=== PATIENT | male | born 1955 | race Caucasian/White ===

== ENCOUNTER 2018-05-04 03:21 | Inpatient (IN) | payer OTHER, SELFPAY ==
[2018-05-04] VITALS (14 sets, daily range): BP systolic 111–144; BP diastolic 63–96; PULSE 67–105; RESP 16–25; TEMP 36.9–37.3; O2SAT 94–97; BMI 24.7; BMI 24.4; BMI 24.3
[2018-05-04 03:52] LABS: Absolute Lymphocyte Count 0.71 X10^3/ul (0.83-4.51); Absolute Neutrophil Count 4.3 X10^3/uL (2.0-7.7); Basophil# 0.02 X10^3/uL; Basophil% 0.3 % (0-1); Eosinophil# 0.01 X10^3/uL; Eosinophils% 0.2 % (0-5); Hemoglobin 15.7 g/dl (13.0-16.5); Lymphocyte # 0.71 X10^3/ul (4.0); Lymphocyte % 11.6 % (19-41); Mean Corp Hgb Conc 34.1 g/gl (32-36); Mean Corpuscular Hgb 34.7 pg (27.0-32.0); Mean Corpuscular Volume 101.8 fL (80-94); Mean Platelet Vol. 11.3 fl (6.2-12.0); Monocyte# 1.09 X10^3/uL; Monocyte% 17.9 % (0-10); Neutrophil # 4.27 X10^3/uL (2.7-7.7); POSITIVE COUNT NO; POSITIVE DIFFERENTIAL NO; POSITIVE MORPHOLOGY NO; Platelet Count 147 K/mm3 (150-450); RBC Distribution Width CV 13.3 % (11.6-14.6); RBC Distribution Width SD 50.1 fl (35.1-43.9); Red Blood Count 4.52 M/mm3 (4.6-6.2); White Blood Count 6.1 K/mm3 (4.4-11.0)
[2018-05-04] MEDS: Ondansetron 4 MG/2 ML Vial IV ×2 (04:08→06:25)
[2018-05-04] MEDS: 0.9% Normal Saline 1,000 ML 1000 ML IV ×2 (04:08→04:51)
[2018-05-04 04:37] LABS: AST(SGOT) 202 U/L (15-37); Alanine Aminotransfer ALT/SGPT 137 U/L (16-61); Albumin, Serum 4.7 g/dL (3.2-5.0); Alkaline Phosphatase 92 U/L (45-117); Anion Gap 20 (5-15); BUN 34 mg/dL (7-18); BUN/Creat Ratio 12.8 RATIO (10-20); Calcium,Total 9.1 mg/dL (8.5-10.1); Chloride 93 mmol/L (98-107); Creatinine, Serum 2.66 mg/dL (0.70-1.30); EST Glomerular Filtration Rate 26 mL/min (>60); Est Glom Filt Rate - Afr Amer 32 mL/min (>60); Estimated Creatinine Clearance 32.54 ml/min; Globulin 4.7 g/dL (2.2-4.2); Glucose 129 mg/dL (74-106); Lipase 3925 U/L (73-393); Potassium 3.8 mmol/L (3.5-5.1); Protein, Total 9.4 g/dL (6.4-8.2); Sodium Level 136 mmol/L (136-145)
[2018-05-04] MEDS: Phenobarbital Sodium 130 MG/ML Vial 100 MG IV (04:51)
--- NOTE | 2018-05-04 05:10 | ED.DCSUM_ITS ---
- ER Visit Summary Date of Service: 05/04/18 Chief Complaint: Nausea and vomiting History of Present Illness: The patient is a 63 M presenting for evaluation secondary nausea and vomiting. Patient has a history of chronic alcoholism. Patient states that he typically drinks daily, but over the course last 4 days he has been unable to drink secondary to the fact that he has had relatively significant nausea and vomiting. He does endorse that he has some epigastric abdominal pain that he describes as a burning type pain. Patient states that he has had some loose stools over the course of the last week. He denies any presence of fevers. Patient states that he has gone through alcohol withdrawal in the past that required intensive care stay, so he attempted to drink 4 ounces of wine today to prevent that. Patient denies any other coingestants at this time. Review of systems otherwise negative. Physical Examination: Vital signs notable for heart rate of 105. Well-nourished male, tremulous and somewhat anxious but otherwise not in physiologic distress. No conjunctival pallor or scleral icterus. Dry mucous membranes. No JVD. Heart was tachycardic and regular no murmurs. Lungs are clear. Abdomen was soft nondistended normal bowel sounds with tenderness in the epigastrium with no guarding or rebound tenderness. Extremities were nontender. Skin was normal color no rash. Patient was alert and oriented without lateralizing neurologic deficits. He was significantly tremulous, and anxious. Test Results: CBC shows thrombocytopenia 147, chemistry demonstrates acute kidney injury BUN 34 creatinine 2.6. Liver panel shows total bili 2.2, ALT 137, AST 202, lipase 3925. Emergency Department Course and Treatment: Patient presented for evaluation secondary to nausea and vomiting in setting of alcoholism. Patient states that he does have adverse effects to Ativan, medazepam IV is on back order, and the patient is unable to tolerate p.o. Librium so he was given a dose of phenobarbital. Patient's CIWA score is 18 at 0343. Patient was given 2 L normal saline and Zofran. Patient's workup shows evidence of acute kidney injury and acute pancreatitis. I believe the patient requires admission. Patient does wish to speak with the detox program while he is in the hospital. This will be arranged Disposition: Admission Impression: 1. Pancreatitis 2. Acute kidney injury 3. Alcohol withdrawal This note was generated with [employer] by [employer] dictation software. It may contain incorrect words, spelling, and punctuation that were not noted in review of the chart prior to signing ED Disposition - Plan for ED Patient: Chief Complaint: Nausea/Vomiting Referrals: Care Physician,No Primary [Primary Care Provider] -
--- NOTE | 2018-05-04 05:55 | HP.PCM_ITS ---
Problem List (1) Pancreatitis Status: Acute Qualifiers: Chronicity: acute Pancreatitis type: alcohol induced Acute pancreatitis complication: unspecified Qualified Code(s): K85.20 - Alcohol induced acute pancreatitis without necrosis or infection (2) Alcohol withdrawal Status: Acute Qualifiers: Complication of substance-induced condition: with unspecified complication Qualified Code(s): F10.239 - Alcohol dependence with withdrawal, unspecified History of Present Illness Date of Admission: 05/04/18 Chief Complaint: shaking, abdominal pain with nausea and vomiting The patient is a 63 year old male patient with a significant past medical history of chronic alcohol abuse presents to the ER with shaking and nausea and vomiting. He has been unable to drink excessively for the last four days due to nausea and vomiting. He has some burning epigastric pain. He complains of having loose stools over the past week. He denies fevers. In the past he has gone through withdrawal and required ICU level care including intubation. He had 4 ounces of wine today to try to avoid this. He denies illicit drug abuse. He will be admitted for alcohol induced pancreatitis. Past Medical History Allergies No Known Allergies Allergy (Verified 05/04/18 03:25) Home Medications: Ambulatory Orders Medication Instructions Recorded Aspirin 325 mg PO DAILY 05/04/18 Losartan Potassium 100 mg PO DAILY 05/04/18 Metoprolol Succinate 25 mg PO DAILY 05/04/18 Smoking Status: Never smoker - *Family History Maternal History Items: No pertinent history Review of Systems Constitutional: Denies: Chills, Fever, Weight Change HEENT: Denies: Head Aches, Sinus Congestion, Sinus Drainage Cardiovascular: Denies: Chest Pain, Palpitations Respiratory: Denies: Cough, Shortness of breath at rest, Sputum production Gastrointestinal: Reports: Abdominal Pain, Nausea, Vomiting Genitourinary: Denies: Dysuria Musculoskeletal: Denies: Joint Pain, Joint Tenderness Skin: Denies: Rash, Wounds Neurological: Reports: Tremor. Denies: Focal weakness, Numbness, Tingling Psychiatric: Reports: Anxiety. Denies: Depression, Homicidal Ideations, Suicidal Ideations Hematologic/ Lymphatic: Denies: Easy Bruising, Easy Bleeding VTE Information - Inpt Only VTE Present on Admission: No VTE Mechan Device Prophylaxis: None VTE Pharm Prophylaxis ordered?: Yes Patient Problems: Active and Suspected Problems Pancreatitis (Acute) Alcohol withdrawal (Acute) - Physical Exam General: Alert, Oriented x3, Cooperative HEENT: Atraumatic, Normocephalic Neck: Supple Lungs: Clear to auscultation, Normal air movement, No rhonchi, No wheeze, No rales Cardiovascular: Regular rate, Normal S1, Normal S2, No murmurs, Tachycardic Abdomen: Bowel Sounds Present, Soft, Obese, Tender - epigastrium Extremities: No edema Skin: No rashes Musculoskeletal: No Tenderness to Palpation of Joints or Extremities Neurological: Neuro grossly intact, - - actively shaking Psych/Mental Status: Anxious, Restless Vital Signs Temp Pulse Resp BP Pulse Ox 98.8 F 105 H 16 135/96 H 97 05/04/18 03:22 05/04/18 03:22 05/04/18 03:22 05/04/18 03:22 05/04/18 03:22 Oxygen Delivery Method Room Air Weight: 187 lb 6.287 oz Body Mass Index (BMI) 24.7 Laboratory Tests Past 24 Hrs 05/04/18 05/04/18 05/04/18 03:28 03:28 03:28 WBC 6.1 RBC 4.52 L Hgb 15.7 Hct 46.0 MCV 101.8 H MCH 34.7 H MCHC 34.1 RDW 13.3 RDW Differential 50.1 H Plt Count 147 L MPV 11.3 Immature Gran % (Auto) 0.000 Neut % (Auto) 70.0 Lymph % (Auto) 11.6 L [place] % (Auto) 17.9 H Eos % (Auto) 0.2 Baso % (Auto) 0.3 Absolute Neuts (auto) 4.3 Absolute Lymphs (auto) 0.71 L Total Counted Not Reportable Sodium 136 Potassium 3.8 Chloride 93 L Carbon Dioxide 23.0 Anion Gap 20 H BUN 34 H Creatinine 2.66 H Estim Creat Clear Calc 32.54 Est GFR (MDRD) Af Amer 32 L Est GFR (MDRD) Non-Af 26 L BUN/Creatinine Ratio 12.8 Glucose 129 H Calcium 9.1 Total Bilirubin 2.20 H AST 202 H ALT 137 H Alkaline Phosphatase 92 Total Protein 9.4 H Albumin 4.7 Globulin 4.7 H Albumin/Globulin Ratio 1.0 Lipase 3925 H Ethyl Alcohol 46.0 Assessment/Plan All Active Problems Pancreatitis (Acute) Alcohol withdrawal (Acute) Plan - admit to PCU - start [facility] protocol (patient has not tolerated ativan well in the past) - Thiamine and folate per routine - consult [facility] for resources with alcohol cessation - NPO with IV fluid support - morphine 2mg IV q 2hrs prn pain - zofran 8mg IV q 6hrs prn nausea - LMWH for DVT prophylaxis Code Visit Inpatient E&M: 35841 Init Hosp L3
[2018-05-04] MEDS: LORazepam 2 MG/ML Syringe 1 MG IV (06:26)
--- NOTE | 2018-05-04 06:46 | NURSING ---
Pt states if he is drinking wine, he will drink 2 bottles in a 24 hours. He states if he is drinking Vodka, he will drink 4 glasses in 24 hours. States his last drink was 05/04/18 around 03:00.
[2018-05-04 07:15] LABS: Bilirubin, Direct 1.18 mg/dL (0.00-0.30)
[2018-05-04] MEDS: 0.9% Normal Saline 1,000 ML 175 ML IV ×3 (08:57→21:11)
[2018-05-04] MEDS: Ondansetron 4 MG/2 ML Vial 8 MG IV (08:57)
[2018-05-04] MEDS: LORazepam 2 MG/ML Syringe IV ×3 (08:58→17:16)
[2018-05-04] MEDS: Enoxaparin 40 MG/0.4 ML Syringe SC (10:51)
--- NOTE | 2018-05-04 12:59 | CASEMGMT ---
Addendum entered by Amrine Deya Cedrick 05/04/18 13:32: Social Work Note Did contact [facility] ([facility]) and spoke with Maliha in Admissions who confirms that they do accept the pt's insurance. Information relayed to pt. Marine Philip, PLANER OPERATOR / GRADER, DEPUTY BUILDING GUARD Original Note: Social Work Assessment Date of Referral: 05/04/18 Date of Intervention(s): 05/04/18 Reason for Consult: Alcoholism Informant: RN YOLANDE Information obtained from: Medical record, pt and . Patient is alert and oriented x4. Pt's , Katya, good source of information and supportive to pt. Living Arrangements: Pt reports to live with his in a one-story home with [address] (in front), and [address] (from garage). Reports diabetic neuropathy and some difficulty with stairs. confirms. He denies use of DME in the home. Claims to be independent with ADLs. Reports multiple falls with significant repercussions. The most recent resulted in a rotator cuff repair earlier this year in August. 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 Able to read and write. Denies any comprehension concerns. 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 Confirms financial stability. 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 Transportation: They claim to have access to transportation and deny any concerns. Social Supports: Pt identifies his , Katya, as a primary support. Katya also has family that lives in [place], and states that they can help them if needed. Stressors: Pt's [id number] in June, which is why the pt and his moved closer to family. He also identifies declining health as a stressor. Mental Health History: Reports a hx of anxiety and depression. States that he has always been anxious and school/work and the hours required to succeed at both exacerbated this. he has been on Ativan, and reports to have gone to a Psychiatrist approximately 15 years ago. He is presently not in counseling. Educate to area resources, and pt accepts information. Substance Abuse History: Confirms alcohol abuse. States that he has been drinking since high school. 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 After this though his work was stressful, and he used it to help him sleep and to reduce the anxiety/stress he felt after working. He his first and there were children involved which he also reports increased his anxiety and he self-medicated, which I know is not the right thing. The pt and his are interested in residential treatment. Educate to local resources as well as out of county resources in network with his insurance. ASSESSMENT: Pt is upright in bed. He is alert and oriented and maintains eye contact throughout conversation. 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 Reports that he has been on medications for it and the only thing that seemed to help was drinking. He would like to seek treatment. Educate to [facility] and their [facility] (Men's residential treatment) as well as provide a list of other residential treatments within their insurance network. Provide with a list of PCPs in network with insurance as well. Preferred pharmacy is [facility] in [place], also educated to Med to Bed program within the hospital. No further needs and made pt and spouse aware that SW is available if needs arise. PLAN: Residential Treatment for ETOH abuse. Marine Philip, PLANER OPERATOR / GRADER, DEPUTY BUILDING GUARD
[2018-05-04 13:15] LABS: Vitamin B12 553 pg/mL (211-911)
[2018-05-04] MEDS: chlordiazePOXIDE 25 MG Capsule 50 MG PO ×3 (13:38→21:09)
--- NOTE | 2018-05-04 18:52 | PCM.HOSP.N ---
Hospitalist Note Patient was seen and examined briefly today, he appears nervous and anxious, I have decided to place him on Librium program to, I talked to his and him about this today. Patient has had a long history of drinking, he states he drinks at least 10 drinks a day-his confirms this, he is a vodka drinker. Patient has been through DTs before but is never been through rehab for alcoholism, I asked the to contact their insurance today if she had time to see if they would pay for an inpatient alcohol rehab program. For now, patient will remain on IV Ativan as needed and will be placed on Librium, I have increased patient's IV rate today and I will repeat the patient's labs tomorrow. Patient states he believes he has had an ultrasound of his gallbladder and liver in the past year and he denies any knowledge of ever having been told he has had stones.
--- NOTE | 2018-05-04 20:16 | NURSING ---
VERONIKA 9 at this time. Not giving Ativan at this time as Librium is scheduled for 22:00.
[2018-05-05] VITALS (14 sets, daily range): BP systolic 106–141; BP diastolic 63–77; PULSE 50–84; RESP 16–22; TEMP 36.4–37.1; O2SAT 93–97
--- NOTE | 2018-05-05 01:39 | NURSING ---
Pt receiving NS @ 175 mL/hr. Pt had not voided this shift. RN got pt up to void, pt voided about 400 mL. Pt bladder scanned for 0 mL post void.
[2018-05-05 02:05] LABS: Amphetamine Urine VISTA NEGATIVE (<1000 ng/mL); Barbiturate Urine VISTA POSITIVE (< 200 ng/mL); Benzodiazepine Urine VISTA NEGATIVE (< 200 ng/mL); Cocaine Urine VISTA NEGATIVE (< 300 ng/mL); Ecstacy Urine VISTA NEGATIVE (< 500 ng/mL); Methadone Urine VISTA NEGATIVE (< 300 ng/mL); PCP Urine VISTA NEGATIVE (< 25 ng/mL); THC Urine VISTA NEGATIVE (< 50 ng/mL); Vista UDS pH Range 6
[2018-05-05] MEDS: 0.9% Normal Saline 1,000 ML 175 ML IV ×4 (03:09→21:40)
[2018-05-05] MEDS: LORazepam 2 MG/ML Syringe IV ×3 (04:29→18:39)
[2018-05-05 06:59] LABS: ALB/GLOB Ratio 0.9 RATIO (0.9-2.4); AST(SGOT) 109 U/L (15-37); Alanine Aminotransfer ALT/SGPT 75 U/L (16-61); Albumin, Serum 3.1 g/dL (3.2-5.0); Alkaline Phosphatase 65 U/L (45-117); Anion Gap 13 (5-15); BUN 36 mg/dL (7-18); BUN/Creat Ratio 20.5 RATIO (10-20); Calcium,Total 7.5 mg/dL (8.5-10.1); Chloride 111 mmol/L (98-107); Creatinine, Serum 1.76 mg/dL (0.70-1.30); EST Glomerular Filtration Rate 42 mL/min (>60); Est Glom Filt Rate - Afr Amer 51 mL/min (>60); Estimated Creatinine Clearance 49.18 ml/min; Globulin 3.5 g/dL (2.2-4.2); Glucose 72 mg/dL (74-106); Lipase 5074 U/L (73-393); Potassium 3.8 mmol/L (3.5-5.1); Protein, Total 6.6 g/dL (6.4-8.2); Sodium Level 146 mmol/L (136-145)
[2018-05-05] MEDS: Enoxaparin 40 MG/0.4 ML Syringe SC (09:18)
[2018-05-05] MEDS: chlordiazePOXIDE 25 MG Capsule 50 MG PO ×4 (09:25→21:39)
--- NOTE | 2018-05-05 10:53 | CASEMGMT ---
Per Cathy SANDOVAL, pt would now like to go to ETOH rehab facility. Call to Jelly Mishra at [facility] and she states that she will come see pt. Shamir SANDOVAL CM
--- NOTE | 2018-05-05 15:41 | CASEMGMT ---
SW received call from Jelly Mishra from [facility]. She said she spoke with patient's . She spoke with [facility] and they would like patient's clinicals. SW faxed this information and then called the letting her know this was done. She did talk with them and they said they received the fax. Emily KEN
--- NOTE | 2018-05-05 18:05 | PN_ITS ---
Patient Problems: Active and Suspected Problems Pancreatitis (Acute) Alcohol withdrawal (Acute) Subjective: Patient was seen and examined today, I talked extensively with his also who is in the room. He has very little abdominal discomfort today, his lipase was more elevated than yesterday, liver enzymes however are trending downward. Patient has had no nausea and vomiting. Hari Mclaughlin talked with the patient and his about getting him into an inpatient rehab facility for alcoholism, they were working on this at the present time. For now, I will continue IV fluid administration and Librium, he has been receiving IV Ativan intermittently but his agitation has not been severe. - Physical Exam General: Alert, Oriented x3, Cooperative, No apparent distress, Well developed, Well nourished HEENT: Atraumatic, PERRLA, EOMI, Normocephalic Oral: Moist Mucosa Neck: Supple, No Nuchal Rigidity, Trachea Midline, Thyroid Normal Size and Texture Lungs: Clear to auscultation, Normal air movement, No rhonchi, No wheeze, No rales Cardiovascular: Regular rate, Regular Rhythm, Normal S1, Normal S2, No murmurs Abdomen: Bowel Sounds Present, Soft, Non Tender, Non-Distended Extremities: No clubbing, No cyanosis, No edema, Capillary Refill Less than 3 Seconds Skin: No rashes, No breakdown Neurological: Cranial nerves II-XII grossly intact, Neuro grossly intact, Sensory exam intact to light touch and pain, Coordination normal Psych/Mental Status: Normal Affect, Appropriate, Alert and oriented to time, place, person, mood and affect Vital Signs Temp Pulse Resp BP Pulse Ox 97.8 F 51 L 18 129/77 H 93 05/05/18 16:30 05/05/18 16:30 05/05/18 16:30 05/05/18 16:30 05/05/18 16:30 Oxygen Delivery Method Room Air Weight: 83.8 kg Body Mass Index (BMI) 24.3 Intake and Output for Last 24 Hours 05/03/18 05/04/18 05/05/18 23:59 23:59 23:59 Intake Total 2786 / 2786 2928 / 2928 Output Total 0 / 0 900 / 900 Balance 2786 / 2786 2027 Laboratory Tests Past 24 Hrs 05/05/18 05/05/18 01:20 06:10 Sodium 146 H Potassium 3.8 Chloride 111 H Carbon Dioxide 22.0 Anion Gap 13 BUN 36 H Creatinine 1.76 H Estim Creat Clear Calc 49.18 Est GFR (MDRD) Af Amer 51 L Est GFR (MDRD) Non-Af 42 L BUN/Creatinine Ratio 20.5 H Glucose 72 L Calcium 7.5 L Total Bilirubin 2.10 H AST 109 H ALT 75 H Alkaline Phosphatase 65 Total Protein 6.6 Albumin 3.1 L Globulin 3.5 Albumin/Globulin Ratio 0.9 Lipase 5074 H Urine Opiates Screen NEGATIVE Urine Methadone Screen NEGATIVE Ur Barbiturates Screen POSITIVE H Ur Phencyclidine Scrn NEGATIVE Ur Amphetamines Screen NEGATIVE U Methamphetamin-MDMA NEGATIVE U Benzodiazepines Scrn NEGATIVE Urine Cocaine Screen NEGATIVE U Cannabinoids Screen NEGATIVE Ur Drug Screen Comment Medical Necessity - Tobacco Use Smoking Status: Never smoker Assessment/Plan All Active Problems Pancreatitis (Acute) Alcohol withdrawal (Acute) #1 acute alcoholic pancreatitis-even though the patient's lipase was more eleva sandy than yesterday, his symptoms appear to be diminished, I will continue his n.p.o. status and continue IV fluids, lipase will be repeated tomorrow as well as liver enzymes. It may be possible to advance his diet to clear liquids tomorrow #2 acute alcohol withdrawal-patient's symptoms have diminished today, he is alert and appropriate, [facility] will look into getting the patient into an inpatient rehab facility #3 alcoholic hepatitis-patient's liver enzymes seem to be trending downward #4 chronic alcoholism-again, efforts will be made toward getting the patient into an inpatient rehab facility Code Visit Inpatient E&M: 00506 Subs Hosp L2
[2018-05-06] VITALS (14 sets, daily range): BP systolic 101–138; BP diastolic 63–88; PULSE 51–90; RESP 14–18; TEMP 36.4–37.1; O2SAT 93–98
[2018-05-06] MEDS: LORazepam 2 MG/ML Syringe IV ×6 (01:46→20:23)
[2018-05-06] MEDS: 0.9% Normal Saline 1,000 ML 175 ML IV ×4 (03:33→20:23)
[2018-05-06 06:59] LABS: AST(SGOT) 110 U/L (15-37); Alanine Aminotransfer ALT/SGPT 72 U/L (16-61); Albumin, Serum 3.1 g/dL (3.2-5.0); Alkaline Phosphatase 86 U/L (45-117); Globulin 3.4 g/dL (2.2-4.2); Lipase 2783 U/L (73-393); Protein, Total 6.5 g/dL (6.4-8.2)
[2018-05-06] MEDS: Enoxaparin 40 MG/0.4 ML Syringe SC (09:20)
[2018-05-06] MEDS: chlordiazePOXIDE 25 MG Capsule 50 MG PO ×4 (09:42→21:09)
--- NOTE | 2018-05-06 10:54 | CASEMGMT ---
[facility] called [facility] and spoke with Jayesh. He spoke with the nurse and patient will have to be completely detoxed before he can be accepted and go there for treatment. They would like updated progress notes daily so the doctor is aware of what is going on. Once he is ready for discharge the doctor will determine if they can accept him. They don't anticipate any problems, but they do want to make sure he has gone through withdrawal completely. [facility] to follow for d/c assistance. Emily HARMAN MSW
--- NOTE | 2018-05-06 11:46 | PCM.PN.HOSP ---
Patient Problems: Active and Suspected Problems Pancreatitis (Acute) Alcohol withdrawal (Acute) Subjective: Still tremulous. No abdominal pain. Vitals/I&O's: Vital Signs Temp Pulse Resp BP Pulse Ox 36.7 C 52 L 16 137/73 H 95 05/06/18 09:19 05/06/18 11:00 05/06/18 09:19 05/06/18 09:19 05/06/18 09:19 Oxygen Delivery Method Room Air Weight: 83.8 kg Body Mass Index (BMI) 24.3 Intake and Output for Last 24 Hours 05/04/18 05/05/18 05/06/18 23:59 23:59 23:59 Intake Total 2786 / 2786 4341 / 4341 1245 / 1245 Output Total 0 / 0 920 / 920 100 / 100 Balance 2786 / 2786 3421 / 3421 1145 / 1145 General: Alert, Cooperative, Confused - Asked me if him from [place], [place], even though he knows he is in [place], [place]. HEENT: Atraumatic, Normocephalic Oral: Moist Mucosa, No Gingival or Mucosal Lesions/ Ulcerations Neck: Thyroid Normal Size and Texture Lungs: Clear to auscultation, Normal air movement, No rhonchi, No wheeze Cardiovascular: Regular rate, Regular Rhythm, Normal S1, Normal S2 Abdomen: Bowel Sounds Present, Soft, Non Tender, Non-Distended, No Hepato-splenomegaly Extremities: No edema, No Calf Tenderness Skin: No rashes, No breakdown Musculoskeletal: No Tenderness to Palpation of Joints or Extremities, No Muscle Wasting Neurological: Neuro grossly intact, Muscle tone normal, - - tremulousness Psych/Mental Status: Normal Affect, Appropriate Laboratory Results 05/06/18 06:13: Total Bilirubin 1.80 H, Direct Bilirubin 1.00 H, AST 110 H, ALT 72 H, Alkaline Phosphatase 86, Total Protein 6.5, Albumin 3.1 L, Globulin 3.4, Lipase 2783 H Current Medications Chlordiazepoxide (Librium) 50 mg PO 4X/DAY [facility] Last Admin: 05/06/18 09:42 Dose: 50 mg Enoxaparin Sodium (Lovenox) 40 mg SC DAILY@1000 [facility] Last Admin: 05/06/18 09:20 Dose: 40 mg Thiamine HCl 200 mg/ Sodium (Chloride) 52 mls @ 200 mls/hr IV DAILY [facility] Last Admin: 05/06/18 09:20 Dose: 200 mls/hr Sodium Chloride () 1,000 mls @ 175 mls/hr IV .[id number] [facility] Last Admin: 05/06/18 09:21 Dose: 175 mls/hr Lorazepam (Ativan) 2 mg IV Q2H PRN PRN; Protocol PRN Reason: CIWA score > 8 but <15 Last Admin: 05/06/18 10:18 Dose: 2 mg Lorazepam (Ativan) 1 mg IV Q4H PRN PRN PRN Reason: Severe Anxiety Lorazepam (Ativan) 2 mg IV UD PRN; Protocol PRN Reason: CIWA score >/=15. Lorazepam (Ativan) 2 mg IV X1 PRN PRN Reason: Seizure Morphine Sulfate () 2 mg IV Q2H PRN PRN PRN Reason: SEVERE PAIN (6-10/10) Ondansetron HCl (Zofran) 8 mg IV Q6H PRN PRN PRN Reason: NAUSEA Last Admin: 05/04/18 08:57 Dose: 8 mg Promethazine HCl (Phenergan) 12.5 mg IV Q6H PRN PRN PRN Reason: NAUSEA/VOMITING Medical Necessity - Tobacco Use Smoking Status: Never smoker Assessment/Plan All Active Problems Pancreatitis (Acute) Alcohol withdrawal (Acute) 1. acute alcoholic pancreatitis improving continue IVF advance diet to clears today. may advance tomorrow 2. acute alcohol withdrawal ongoing continue with Librium still receiving PRN Ativan received 3 bags of Folic Acid continue thiamine last drink was 05/03 no DTs at this time, but still could devolve given his extensive consumption (2 bottles of wine/day) [facility] to facilitate outpt mgmt Per his : plan is to stay in [place] (for the time being) after discharge 3. Alcoholic hepatitis mild elevation improving patient states that he has had fatty liver on previous scans 4. DVT proph: LMWH Greater than 40 minutes, of which greater than 50% of the time was counseling the patient and his about alcohol abuse, treatment. Code Visit Inpatient E&M: 64191 [facility] Hosp L3
--- NOTE | 2018-05-06 11:54 | PN_ITS ---
Patient Problems: Active and Suspected Problems Pancreatitis (Acute) Alcohol withdrawal (Acute) Subjective: Still tremulous. No abdominal pain. Vitals/I&O's: Vital Signs Temp Pulse Resp BP Pulse Ox 36.7 C 52 L 16 137/73 H 95 05/06/18 09:19 05/06/18 11:00 05/06/18 09:19 05/06/18 09:19 05/06/18 09:19 Oxygen Delivery Method Room Air Weight: 83.8 kg Body Mass Index (BMI) 24.3 Intake and Output for Last 24 Hours 05/04/18 05/05/18 05/06/18 23:59 23:59 23:59 Intake Total 2786 / 2786 4341 / 4341 1245 / 1245 Output Total 0 / 0 920 / 920 100 / 100 Balance 2786 / 2786 3421 / 3421 1145 / 1145 General: Alert, Cooperative, Confused - Asked me if him from [place], [place], even though he knows he is in [place], [place]. HEENT: Atraumatic, Normocephalic Oral: Moist Mucosa, No Gingival or Mucosal Lesions/ Ulcerations Neck: Thyroid Normal Size and Texture Lungs: Clear to auscultation, Normal air movement, No rhonchi, No wheeze Cardiovascular: Regular rate, Regular Rhythm, Normal S1, Normal S2 Abdomen: Bowel Sounds Present, Soft, Non Tender, Non-Distended, No Hepato- splenomegaly Extremities: No edema, No Calf Tenderness Skin: No rashes, No breakdown Musculoskeletal: No Tenderness to Palpation of Joints or Extremities, No Muscle Wasting Neurological: Neuro grossly intact, Muscle tone normal, - - tremulousness Psych/Mental Status: Normal Affect, Appropriate Laboratory Results 05/06/18 06:13: Total Bilirubin 1.80 H, Direct Bilirubin 1.00 H, AST 110 H, ALT 72 H, Alkaline Phosphatase 86, Total Protein 6.5, Albumin 3.1 L, Globulin 3.4, Lipase 2783 H Current Medications Chlordiazepoxide (Librium) 50 mg PO 4X/DAY [facility] Last Admin: 05/06/18 09:42 Dose: 50 mg Enoxaparin Sodium (Lovenox) 40 mg SC DAILY@1000 [facility] Last Admin: 05/06/18 09:20 Dose: 40 mg Thiamine HCl 200 mg/ Sodium (Chloride) 52 mls @ 200 mls/hr IV DAILY [facility] Last Admin: 05/06/18 09:20 Dose: 200 mls/hr Sodium Chloride () 1,000 mls @ 175 mls/hr IV .Q5H43M [facility] Last Admin: 05/06/18 09:21 Dose: 175 mls/hr Lorazepam (Ativan) 2 mg IV Q2H PRN PRN; Protocol PRN Reason: CIWA score > 8 but <15 Last Admin: 05/06/18 10:18 Dose: 2 mg Lorazepam (Ativan) 1 mg IV Q4H PRN PRN PRN Reason: Severe Anxiety Lorazepam (Ativan) 2 mg IV UD PRN; Protocol PRN Reason: CIWA score >/=15. Lorazepam (Ativan) 2 mg IV X1 PRN PRN Reason: Seizure Morphine Sulfate () 2 mg IV Q2H PRN PRN PRN Reason: SEVERE PAIN (6-10/10) Ondansetron HCl (Zofran) 8 mg IV Q6H PRN PRN PRN Reason: NAUSEA Last Admin: 05/04/18 08:57 Dose: 8 mg Promethazine HCl (Phenergan) 12.5 mg IV Q6H PRN PRN PRN Reason: NAUSEA/VOMITING Medical Necessity - Tobacco Use Smoking Status: Never smoker Assessment/Plan All Active Problems Pancreatitis (Acute) Alcohol withdrawal (Acute) 1. acute alcoholic pancreatitis * improving * continue IVF * advance diet to clears today. may advance tomorrow 2. acute alcohol withdrawal * ongoing * continue with Librium * still receiving PRN Ativan * received 3 bags of Folic Acid * continue thiamine * last drink was 05/03 * no DTs at this time, but still could devolve given his extensive consumption (2 bottles of wine/day) * [facility] to facilitate outpt mgmt * Per his : plan is to stay in [place] (for the time being) after discharge 3. Alcoholic hepatitis * mild elevation * improving * patient states that he has had fatty liver on previous scans 4. DVT proph: LMWH Greater than 40 minutes, of which greater than 50% of the time was counseling the patient and his about alcohol abuse, treatment. Code Visit Inpatient E&M: 52004 [facility] Hosp L3
--- NOTE | 2018-05-06 14:47 | CASEMGMT ---
ZAC faxed updates to [facility] per their request to have daily updates. Emily HARMAN MSW
[2018-05-07] VITALS (14 sets, daily range): BP systolic 118–138; BP diastolic 65–87; PULSE 51–81; RESP 16–20; TEMP 36.6–37.1; O2SAT 93–97
[2018-05-07] MEDS: LORazepam 2 MG/ML Syringe IV ×8 (00:06→21:37)
[2018-05-07] MEDS: 0.9% Normal Saline 1,000 ML 175 ML IV ×2 (04:33→11:00)
[2018-05-07] MEDS: traZODone 50 MG Tablet PO ×2 (06:16→22:08)
[2018-05-07] MEDS: Ciprofloxacin 0.3% 2.5ml Bottle 2 DRP EACH EYE ×5 (06:16→21:38)
[2018-05-07 07:07] LABS: ALB/GLOB Ratio 0.8 RATIO (0.9-2.4); AST(SGOT) 74 U/L (15-37); Alanine Aminotransfer ALT/SGPT 56 U/L (16-61); Albumin, Serum 2.8 g/dL (3.2-5.0); Alkaline Phosphatase 84 U/L (45-117); Anion Gap 12 (5-15); BUN 17 mg/dL (7-18); BUN/Creat Ratio 23.6 RATIO (10-20); Calcium,Total 7.1 mg/dL (8.5-10.1); Chloride 111 mmol/L (98-107); Creatinine, Serum 0.72 mg/dL (0.70-1.30); EST Glomerular Filtration Rate 117 mL/min (>60); Est Glom Filt Rate - Afr Amer 142 mL/min (>60); Estimated Creatinine Clearance 120.22 ml/min; Globulin 3.5 g/dL (2.2-4.2); Glucose 60 mg/dL (74-106); Lipase 1160 U/L (73-393); Potassium 3.2 mmol/L (3.5-5.1); Protein, Total 6.3 g/dL (6.4-8.2); Sodium Level 143 mmol/L (136-145)
[2018-05-07] MEDS: Enoxaparin 40 MG/0.4 ML Syringe SC (09:22)
[2018-05-07] MEDS: chlordiazePOXIDE 25 MG Capsule 50 MG PO ×4 (09:36→21:37)
[2018-05-07] MEDS: Thiamine Hydrochloride 200 MG/2 ML Vial (09:40)
[2018-05-07] MEDS: Morphine 2 MG/ML Syringe IV (13:01)
--- NOTE | 2018-05-07 14:09 | PCM.PN.HOSP ---
Patient Problems: Active and Suspected Problems Pancreatitis (Acute) Alcohol withdrawal (Acute) Subjective: Has some dysuria. Vitals/I&O's: Vital Signs Temp Pulse Resp BP Pulse Ox 36.6 C 58 L 18 118/75 97 05/07/18 12:29 05/07/18 12:29 05/07/18 12:29 05/07/18 12:29 05/07/18 12:29 Oxygen Delivery Method Room Air Weight: 83.8 kg Body Mass Index (BMI) 24.3 Intake and Output for Last 24 Hours 05/05/18 05/06/18 05/07/18 23:59 23:59 23:59 Intake Total 4341 / 4341 4111 / 4111 3753 / 3753 Output Total 920 / 920 780 / 780 2175 / 2175 Balance 3421 / 3421 3331 / 3331 1578 / 1578 General: - - confused. diaphoretic. afebrile. HEENT: Atraumatic, Normocephalic Oral: Moist Mucosa, No Gingival or Mucosal Lesions/ Ulcerations Neck: No Nodes, Thyroid Normal Size and Texture Lungs: Clear to auscultation, Normal air movement, No rhonchi, No wheeze Cardiovascular: Regular rate, Regular Rhythm, Normal S1, Normal S2 Abdomen: Bowel Sounds Present, Soft, Non Tender, Non-Distended, No Hepato-splenomegaly Extremities: No edema, No Calf Tenderness Laboratory Results 05/07/18 05:50: Sodium 143, Potassium 3.2 L, Chloride 111 H, Carbon Dioxide 20.0 L, Anion Gap 12, BUN 17, Creatinine 0.72, Estim Creat Clear Calc 120.22, Est GFR (MDRD) Af Amer 142, Est GFR (MDRD) Non-Af 117, BUN/Creatinine Ratio 23.6 H, Glucose 60 L, Calcium 7.1 L, Total Bilirubin 1.60 H, AST 74 H, ALT 56, Alkaline Phosphatase 84, Total Protein 6.3 L, Albumin 2.8 L, Globulin 3.5, Albumin/Globulin Ratio 0.8 L, Lipase 1160 H Current Medications Chlordiazepoxide (Librium) 50 mg PO 4X/DAY [facility] Last Admin: 05/07/18 13:57 Dose: 50 mg Ciprofloxacin HCl (Ciloxan) 2 drop EACH EYE Q4 [facility] Last Admin: 05/07/18 13:57 Dose: 2 drop Enoxaparin Sodium (Lovenox) 40 mg SC DAILY@1000 [facility] Last Admin: 05/07/18 09:22 Dose: 40 mg Sodium Chloride () 1,000 mls @ 175 mls/hr IV .Q5H43M [facility] Last Admin: 05/07/18 11:00 Dose: 175 mls/hr Lorazepam (Ativan) 2 mg IV Q2H PRN PRN; Protocol PRN Reason: CIWA score > 8 but <15 Last Admin: 05/07/18 13:01 Dose: 2 mg Lorazepam (Ativan) 1 mg IV Q4H PRN PRN PRN Reason: Severe Anxiety Lorazepam (Ativan) 2 mg IV UD PRN; Protocol PRN Reason: CIWA score >/=15. Last Admin: 05/07/18 04:37 Dose: 2 mg Lorazepam (Ativan) 2 mg IV X1 PRN PRN Reason: Seizure Morphine Sulfate () 2 mg IV Q2H PRN PRN PRN Reason: SEVERE PAIN (6-10/10) Last Admin: 05/07/18 13:01 Dose: 2 mg Ondansetron HCl (Zofran) 8 mg IV Q6H PRN PRN PRN Reason: NAUSEA Last Admin: 05/04/18 08:57 Dose: 8 mg Promethazine HCl (Phenergan) 12.5 mg IV Q6H PRN PRN PRN Reason: NAUSEA/VOMITING Thiamine HCl (Vitamin B1) 200 mg PO DAILYCM [facility] Medical Necessity - Tobacco Use Smoking Status: Never smoker Assessment/Plan All Active Problems Pancreatitis (Acute) Alcohol withdrawal (Acute) 1. acute alcoholic pancreatitis improving continue IVF advance diet to regular 2. acute alcohol withdrawal ongoing continue with Librium still receiving PRN Ativan received 3 bags of Folic Acid continue thiamine last drink was 05/03 no DTs at this time, but still could devolve given his extensive consumption (2 bottles of wine/day) [facility] to facilitate outpt mgmt Per his : plan is to stay in [place] (for the time being) after discharge Per CM, patient is to go to [facility] 3. Alcoholic hepatitis mild elevation improving patient states that he has had fatty liver on previous scans 4. DVT proph: LMWH 5. Dysuria: check UA Code Visit Inpatient E&M: 63960 Subs Hosp L2
--- NOTE | 2018-05-07 14:12 | PN_ITS ---
Patient Problems: Active and Suspected Problems Pancreatitis (Acute) Alcohol withdrawal (Acute) Subjective: Has some dysuria. Vitals/I&O's: Vital Signs Temp Pulse Resp BP Pulse Ox 36.6 C 58 L 18 118/75 97 05/07/18 12:29 05/07/18 12:29 05/07/18 12:29 05/07/18 12:29 05/07/18 12:29 Oxygen Delivery Method Room Air Weight: 83.8 kg Body Mass Index (BMI) 24.3 Intake and Output for Last 24 Hours 05/05/18 05/06/18 05/07/18 23:59 23:59 23:59 Intake Total 4341 / 4341 4111 / 4111 3753 / 3753 Output Total 920 / 920 780 / 780 2175 / 2175 Balance 3421 / 3421 3331 / 3331 1578 / 1578 General: - - confused. diaphoretic. afebrile. HEENT: Atraumatic, Normocephalic Oral: Moist Mucosa, No Gingival or Mucosal Lesions/ Ulcerations Neck: No Nodes, Thyroid Normal Size and Texture Lungs: Clear to auscultation, Normal air movement, No rhonchi, No wheeze Cardiovascular: Regular rate, Regular Rhythm, Normal S1, Normal S2 Abdomen: Bowel Sounds Present, Soft, Non Tender, Non-Distended, No Hepato- splenomegaly Extremities: No edema, No Calf Tenderness Laboratory Results 05/07/18 05:50: Sodium 143, Potassium 3.2 L, Chloride 111 H, Carbon Dioxide 20.0 L, Anion Gap 12, BUN 17, Creatinine 0.72, Estim Creat Clear Calc 120.22, Est GFR (MDRD) Af Amer 142, Est GFR (MDRD) Non-Af 117, BUN/Creatinine Ratio 23.6 H, Glucose 60 L, Calcium 7.1 L, Total Bilirubin 1.60 H, AST 74 H, ALT 56, Alkaline Phosphatase 84, Total Protein 6.3 L, Albumin 2.8 L, Globulin 3.5, Albumin/Globulin Ratio 0.8 L, Lipase 1160 H Current Medications Chlordiazepoxide (Librium) 50 mg PO 4X/DAY [facility] Last Admin: 05/07/18 13:57 Dose: 50 mg Ciprofloxacin HCl (Ciloxan) 2 drop EACH EYE Q4 [facility] Last Admin: 05/07/18 13:57 Dose: 2 drop Enoxaparin Sodium (Lovenox) 40 mg SC DAILY@1000 [facility] Last Admin: 05/07/18 09:22 Dose: 40 mg Sodium Chloride () 1,000 mls @ 175 mls/hr IV .Q5H43M [facility] Last Admin: 05/07/18 11:00 Dose: 175 mls/hr Lorazepam (Ativan) 2 mg IV Q2H PRN PRN; Protocol PRN Reason: CIWA score > 8 but <15 Last Admin: 05/07/18 13:01 Dose: 2 mg Lorazepam (Ativan) 1 mg IV Q4H PRN PRN PRN Reason: Severe Anxiety Lorazepam (Ativan) 2 mg IV UD PRN; Protocol PRN Reason: CIWA score >/=15. Last Admin: 05/07/18 04:37 Dose: 2 mg Lorazepam (Ativan) 2 mg IV X1 PRN PRN Reason: Seizure Morphine Sulfate () 2 mg IV Q2H PRN PRN PRN Reason: SEVERE PAIN (6-1010) Last Admin: 05/07/18 13:01 Dose: 2 mg Ondansetron HCl (Zofran) 8 mg IV Q6H PRN PRN PRN Reason: NAUSEA Last Admin: 05/04/18 08:57 Dose: 8 mg Promethazine HCl (Phenergan) 12.5 mg IV Q6H PRN PRN PRN Reason: NAUSEA/VOMITING Thiamine HCl (Vitamin B1) 200 mg PO DAILYCM [facility] Medical Necessity - Tobacco Use Smoking Status: Never smoker Assessment/Plan All Active Problems Pancreatitis (Acute) Alcohol withdrawal (Acute) 1. acute alcoholic pancreatitis * improving * continue IVF * advance diet to regular 2. acute alcohol withdrawal * ongoing * continue with Librium * still receiving PRN Ativan * received 3 bags of Folic Acid * continue thiamine * last drink was 05/03 * no DTs at this time, but still could devolve given his extensive consumption (2 bottles of wine/day) * [facility] to facilitate outpt mgmt * Per his : plan is to stay in [place] (for the time being) after discharge * Per CM, patient is to go to [facility] 3. Alcoholic hepatitis * mild elevation * improving * patient states that he has had fatty liver on previous scans 4. DVT proph: LMWH 5. Dysuria: check UA Code Visit Inpatient E&M: 62120 Subs Hosp L2
--- NOTE | 2018-05-07 14:34 | CASEMGMT ---
ZAC spoke with Nano at [facility]. She said that they do admit patient's over the weekend. She again said patient will have to be completely through his withdrawals before they can accept him. She asked that [facility] continue to fax progress notes daily. ZAC called patient's and let her know above. She thanked ZAC for the update. Plan: [facility] pending patient being done with alcohol withdrawal completely and the [facility] physician accepting him. Also bed availability. Family will have to transport patient. Emily HARMAN MSW
--- NOTE | 2018-05-07 15:46 | CASEMGMT ---
Faxed progress notes and alcohol withdrawal assessment to [facility]. Emily HARMAN ELECTRIC STOP INSTALLER
[2018-05-07 17:37] LABS: Bacteria 0 SEEN /hpf (None Seen); Mucous, Urine 0 SEEN /hpf (<or=2+); Squamous Epithelial Cells - UA 0 SEEN /hpf (0-5); White Blood Cells 0 SEEN /hpf (0-5)
[2018-05-07 17:47] LABS: Glucose, Dipstick Normal (Normal); Ketone-Dipstick 50 mg/dl (Negative); Leukocyte Esterase-Dipstick Negative /ul (Negative); Nitrite-Dipstick Negative (Negative); Occult Blood-Urine 250 /ul (Negative); Protein-Dipstick Negative (Negative); Specific Gravity, Urine 1.005 (1.002-1.030); Urine Bilirubin Dipstick Negative (Negative); Urine Urobilinogen 4 mg/dl (Normal); Urine pH 6.5 (5.0 - 8.0)
[2018-05-07 17:57] LABS: Color, Urine Yellow (Yellow); Urine Clarity Clear (Clear)
[2018-05-07 18:52] LABS: Red Blood Cells-Urine 0-5 SEEN /hpf (0-5)
[2018-05-08] VITALS (17 sets, daily range): BP systolic 102–146; BP diastolic 72–93; PULSE 53–104; RESP 17–24; TEMP 36.5–37.2; O2SAT 94–100
[2018-05-08] MEDS: LORazepam 2 MG/ML Syringe IV ×3 (01:02→18:14)
[2018-05-08] MEDS: Ciprofloxacin 0.3% 2.5ml Bottle 2 DRP EACH EYE ×6 (01:40→21:09)
--- NOTE | 2018-05-08 07:03 | NURSING ---
This RN attempted to call the pt's . Nobody answered the phone. This RN left message to call the unit, PCU concerning her .
[2018-05-08 07:26] LABS: ALB/GLOB Ratio 0.8 RATIO (0.9-2.4); AST(SGOT) 53 U/L (15-37); Alanine Aminotransfer ALT/SGPT 43 U/L (16-61); Albumin, Serum 2.5 g/dL (3.2-5.0); Alkaline Phosphatase 78 U/L (45-117); Anion Gap 14 (5-15); BUN 9 mg/dL (7-18); BUN/Creat Ratio 18.1 RATIO (10-20); Calcium,Total 6.6 mg/dL (8.5-10.1); Chloride 110 mmol/L (98-107); EST Glomerular Filtration Rate 180 mL/min (>60); Est Glom Filt Rate - Afr Amer 218 mL/min (>60); Estimated Creatinine Clearance 173.12 ml/min; Globulin 3.2 g/dL (2.2-4.2); Glucose 65 mg/dL (74-106); Lipase 548 U/L (73-393); Magnesium 0.6 mg/dL (1.6-2.6); Potassium 3.4 mmol/L (3.5-5.1); Protein, Total 5.7 g/dL (6.4-8.2); Sodium Level 142 mmol/L (136-145)
[2018-05-08 07:41] LABS: Bedside Glucose 82 mg/dL (70-110)
--- NOTE | 2018-05-08 08:00 | NURSING ---
at bedside requesting to speak with charge nurse, nursing gas meter repair supervisor, and hospitalist. charge entry aware. charge entry to text hospitalist.
--- NOTE | 2018-05-08 08:25 | NURSING ---
Per LORI Melendez, is requetsing to speak with project drilling engineer and Nursing Billiard Table Assembler. Emma RN and Steven RN to the bedside to talk with patient and his at this time.
--- NOTE | 2018-05-08 09:40 | CT_ITS ---
STUDY: CT BRAIN WITHOUT CONTRAST REASON FOR EXAM: Male, 63 years old. Status post fall. RADIATION DOSAGE (If Supplied By Facility): CTDIvol = ( 44.99 ) mGy, DLP = ( 846.73 ) mGycm TECHNIQUE: Transaxial CT imaging of the brain was performed without administration of intravenous contrast material. Individualized dose optimization techniques were used for this CT. COMPARISON: None. FINDINGS: Normal soft tissue structures. Normal calvarium. There is mild cerebral atrophy with widening of the extra-axial spaces and ventricular dilatation. Normal white matter tracts of the cerebral hemispheres. Normal basal ganglia and thalami. Normal brainstem. Normal cerebellum. There is no intracranial hemorrhage. There are no findings of an acute ischemic infarction. There is mucosal thickening of the maxillary and ethmoid sinuses bilaterally. CT/Brain/Head without Contrast IMPRESSION: No acute intracranial process. Electronically Signed: Atilio Carlisle MD at 10:58 EST Tel , Service support ,
--- NOTE | 2018-05-08 12:05 | CHAPLAIN ---
Type of Pastoral Visit ___ Initial Visit ___ Follow-up Visit _x__ On-call Visit ___ General Patient Visit ___ Spiritual Assessment ___ Family Conference ___ Bereavement ___ Rapid Response ___ Code Blue ___ Other (describe below) Pastoral Care Referral From ___ Patient _x__ Family ___ Nurse ___ Physician _x__ Curator Herbarium ___ Instrument And Control Technician _x__ Other (describe below) Sacrament/Intervention _x__ Active listening ___ Anointing ___ Jainism ___ Bereavement ___ Communion _x__ Marj exploration ___ _x__ Life review _x__ Prayer ___ Reconciliation ___ Sacrament of Sick _x__ Supportive presence ___ Wedding ___ Other (describe below) Pastoral Comments call received at home at approximately 10:29 a.m. to come for urgent need at family request; arrived at 11:02 a.m. to room and met with spouse of patient; RN was just leaving room at this time; spouse demonstrates upset feelings over earlier fall of patient in room; spouse would like spiritual support through prayer for the purpose of finding calm in situation; pt appears to be sleeping at initial entrance into room; upon calling out name the patient opens his eyes and acknowledges presence of bottom hoop driver and his spouse; this bottom hoop driver asks about patient; spouse receives phone call to say that patient will be moved to ICU for observation; prayer is given for patient and spouse around the bed; MANAGER PRIVACY enters room to act as a sitter; spouse inquires about churches in the area as she is looking to connect locally with a muslim; Hospitalist enters room for examination of patient; spouse has evidenced more calm by this time and is in control of emotions by now; spouse is very polite to Hospitalist; bottom hoop driver enters into conversation with patient and talk revolves around his early life history, moving to different places, football, and pets; spouse decides to go home for a brief time; this bottom hoop driver offers to remain with patient a bit longer; this bottom hoop driver and MANAGER PRIVACY are in room as pt talks with us; some of his speech is slurred and yet mostly he is speaking appropriately; pt does not appear to be in any pain or discomfort; pt says that I will rest now. They gave me Ativan and so I may sleep. this bottom hoop driver leaves the room at 11:58 a.m.
--- NOTE | 2018-05-08 12:28 | NURSING ---
Called report to LORI Sosa in ICU
--- NOTE | 2018-05-08 12:55 | RAD_ITS ---
STUDY: X-RAY CHEST REASON FOR EXAM: Male, 63 years old. Wheezing TECHNIQUE: Single AP portable view of the chest. COMPARISON: None. FINDINGS: There are monitoring devices. There is lower lung atelectasis. There is right pleural thickening or small effusion. Normal size heart. Normal mediastinum and savi. Normal visualized pulmonary arteries. Normal visualized aortic arch and descending thoracic aorta. Normal visualized thoracic spine. Normal visualized ribs, clavicles, and shoulders. There is no demonstrated abnormality of the visualized soft tissue structures of the upper abdomen. RAD/Chest 1 View (Portable) IMPRESSION: Lower lung atelectasis with small right effusion or pleural thickening. Electronically Signed: Vincent Ocasio MD at 14:41 EST , Service support ,
--- NOTE | 2018-05-08 12:56 | PCM.PN.HOSP ---
Patient Problems: Active and Suspected Problems Pancreatitis (Acute) Alcohol withdrawal (Acute) Fall (Acute) Subjective: patient was found on the floor last night. patient has no recollection but did sustain an abrasion on right cheek and knee. feels weak. Vitals/I&O's: Vital Signs Temp Pulse Resp BP Pulse Ox 37.2 C 57 L 23 H 131/75 H 94 05/08/18 08:34 05/08/18 11:03 05/08/18 08:34 05/08/18 08:34 05/08/18 08:34 Oxygen Delivery Method Room Air Weight: 83.8 kg Body Mass Index (BMI) 24.3 Intake and Output for Last 24 Hours 05/06/18 05/07/18 05/08/18 23:59 23:59 23:59 Intake Total 4111 / 4111 5673 / 5673 900 / 900 Output Total 780 / 780 2825 / 2825 700 / 700 Balance 3331 / 3331 2848 / 2848 200 / 200 General: Alert, - - slightly groggy. speech difficult to understand. HEENT: Normocephalic, - - slight abrasion on right cheeck Oral: Moist Mucosa, No Gingival or Mucosal Lesions/ Ulcerations Neck: No Nodes, Thyroid Normal Size and Texture, - - no cervical tenderness. Lungs: Clear to auscultation, Normal air movement, No rhonchi, No wheeze Cardiovascular: Regular rate, Regular Rhythm, Normal S1, Normal S2, No murmurs Abdomen: Bowel Sounds Present, Soft, Non Tender, Non-Distended, No Hepato-splenomegaly, Obese Extremities: No edema, No Calf Tenderness Skin: - - superfical abrasion right knee. superfical abrasion right cheek Musculoskeletal: No Tenderness to Palpation of Joints or Extremities, No Muscle Wasting, - - FROM, passive, in bilateral hips and knees. no knee effusion. Psych/Mental Status: Appropriate, - - groggy. Laboratory Results 05/07/18 17:25: Urine Color Yellow, Urine Clarity Clear, Urine pH 6.5, Ur Specific [place] 1.005, Urine Protein Negative, Urine Glucose (UA) Normal, Urine Ketones 50 H, Urine Occult Blood 250 H, Urine Nitrite Negative, Urine Bilirubin Negative, Urine Urobilinogen 4 H, Ur Leukocyte Esterase Negative, Urine RBC 0-5 SEEN, Urine WBC 0 SEEN, Ur Squamous Epith Cells 0 SEEN, Urine Bacteria 0 SEEN, Urine Mucus 0 SEEN 05/08/18 05:30: Sodium 142, Potassium 3.4 L, Chloride 110 H, Carbon Dioxide 18.0 L, Anion Gap 14, BUN 9, Creatinine 0.50 L, Estim Creat Clear Calc 173.12, Est GFR (MDRD) Af Amer 218, Est GFR (MDRD) Non-Af 180, BUN/Creatinine Ratio 18.1, Glucose 65 L, Calcium 6.6 L, Magnesium 0.6 L*, Total Bilirubin 1.30 H, AST 53 H, ALT 43, Alkaline Phosphatase 78, Total Protein 5.7 L, Albumin 2.5 L, Globulin 3.2, Albumin/Globulin Ratio 0.8 L, Lipase 548 H 05/08/18 06:44: POC Glucose 82 Current Medications Acetaminophen (Tylenol) 500 mg PO Q4H PRN PRN PRN Reason: Temp > 100.4 F Al Hydroxide/Mg Hydroxide (Mylanta Ii) 30 ml PO Q6H PRN PRN PRN Reason: dyspesia Bisacodyl (Dulcolax) 10 mg RECTAL DAILY PRN PRN Reason: Constipation Ciprofloxacin HCl (Ciloxan) 2 drop EACH EYE Q4 [facility] Last Admin: 05/08/18 10:52 Dose: 2 drop Enoxaparin Sodium (Lovenox) 40 mg SC DAILY@1000 [facility] Last Admin: 05/07/18 09:22 Dose: 40 mg Potassium Chloride/Sodium Chloride (Kcl 20meq In 0.45% Ns 1000ml) 1,000 mls @ 150 mls/hr IV .Q6H40M [facility] Last Admin: 05/08/18 12:15 Dose: 150 mls/hr Loperamide HCl (Imodium) 2 - 4 mg PO UD PRN PRN Reason: LOOSE STOOLS Lorazepam (Ativan) 2 mg IV Q2H PRN PRN; Protocol PRN Reason: CIWA score > 8 but <15 Last Admin: 05/08/18 03:08 Dose: 2 mg Lorazepam (Ativan) 1 mg IV Q4H PRN PRN PRN Reason: Severe Anxiety Lorazepam (Ativan) 2 mg IV UD PRN; Protocol PRN Reason: CIWA score >/=15. Last Admin: 05/07/18 04:37 Dose: 2 mg Lorazepam (Ativan) 2 mg IV X1 PRN PRN Reason: Seizure Morphine Sulfate () 2 mg IV Q2H PRN PRN PRN Reason: SEVERE PAIN (6-04/07) Last Admin: 05/07/18 13:01 Dose: 2 mg Nutritional Formula (Lactose Free) (Ensure Enlive) 120 ml PO 4X/DAY [facility] Last Admin: 05/08/18 11:01 Dose: Not Given Ondansetron HCl (Zofran) 8 mg IV Q6H PRN PRN PRN Reason: NAUSEA Last Admin: 05/04/18 08:57 Dose: 8 mg Ondansetron HCl (Zofran Odt) 4 mg PO Q6H PRN PRN PRN Reason: NAUSEA Promethazine HCl (Phenergan) 12.5 mg IV Q6H PRN PRN PRN Reason: NAUSEA/VOMITING Senna (Senokot) 1 tablet PO QHS PRN PRN PRN Reason: Constipation Thiamine [facility] ([facility]itamin [facility]) [facility] Last Admin: 05/08/18 11:02 Dose: Not Given Trazodone HCl (Desyrel) 50 mg PO QHS [facility] Last Admin: 05/07/18 22:08 Dose: 50 mg Medical Necessity - Tobacco Use Smoking Status: Never smoker Assessment/Plan All Active Problems Pancreatitis (Acute) Alcohol withdrawal (Acute) Fall (Acute) 1. acute alcoholic pancreatitis improving continue IVF advance diet to regular 2. acute alcohol withdrawal ongoing still receiving PRN Ativan received 3 bags of Folic Acid continue thiamine last drink was 05/03 no DTs at this time, but still could devolve given his extensive consumption (2 bottles of wine/day) [facility] to facilitate outpt mgmt Per his : plan is to stay in [place] (for the time being) after discharge Per CM, patient is to go to [facility] 3. Alcoholic hepatitis improving mild elevation improving patient states that he has had fatty liver on previous scans 4. Fall unwitnessed maybe due to weakness compounded by withdrawal and medications head CT unremarkable no additional work up necessary at this time 5. Encephalopathy probably metabolic d/t Alcohol withdrawal, but cannot rule out medication component dc librium 6. DVT proph: LMWH 7. Dysuria: UA negative 8. Hypomagnesemia replace monitor 9. Hypokalemia replace K and MG monitor Discussed extensively with the patient's , who was very upset at learning about the fall, but reassurance was provided and was much more calm later. Patient will be a level of care in the ICU given his falls and confusion. Greater than 50 minutes of which greater than 50% of the time was discussing with the patient's about the fall, review of data, and plan. Code Visit Inpatient E&M: 50809 Subs Hosp L3
--- NOTE | 2018-05-08 13:04 | PN_ITS ---
Patient Problems: Active and Suspected Problems Pancreatitis (Acute) Alcohol withdrawal (Acute) Fall (Acute) Subjective: patient was found on the floor last night. patient has no recollection but did sustain an abrasion on right cheek and knee. feels weak. Vitals/I&O's: Vital Signs Temp Pulse Resp BP Pulse Ox 37.2 C 57 L 23 H 131/75 H 94 05/08/18 08:34 05/08/18 11:03 05/08/18 08:34 05/08/18 08:34 05/08/18 08:34 Oxygen Delivery Method Room Air Weight: 83.8 kg Body Mass Index (BMI) 24.3 Intake and Output for Last 24 Hours 05/06/18 05/07/18 05/08/18 23:59 23:59 23:59 Intake Total 4111 / 4111 5673 / 5673 900 / 900 Output Total 780 / 780 2825 / 2825 700 / 700 Balance 3331 / 3331 2848 / 2848 200 / 200 General: Alert, - - slightly groggy. speech difficult to understand. HEENT: Normocephalic, - - slight abrasion on right cheeck Oral: Moist Mucosa, No Gingival or Mucosal Lesions/ Ulcerations Neck: No Nodes, Thyroid Normal Size and Texture, - - no cervical tenderness. Lungs: Clear to auscultation, Normal air movement, No rhonchi, No wheeze Cardiovascular: Regular rate, Regular Rhythm, Normal S1, Normal S2, No murmurs Abdomen: Bowel Sounds Present, Soft, Non Tender, Non-Distended, No Hepato- splenomegaly, Obese Extremities: No edema, No Calf Tenderness Skin: - - superfical abrasion right knee. superfical abrasion right cheek Musculoskeletal: No Tenderness to Palpation of Joints or Extremities, No Muscle Wasting, - - FROM, passive, in bilateral hips and knees. no knee effusion. Psych/Mental Status: Appropriate, - - groggy. Laboratory Results 05/07/18 17:25: Urine Color Yellow, Urine Clarity Clear, Urine pH 6.5, Ur Specific [place] 1.005, Urine Protein Negative, Urine Glucose (UA) Normal, Urine Ketones 50 H, Urine Occult Blood 250 H, Urine Nitrite Negative, Urine Bilirubin Negative, Urine Urobilinogen 4 H, Ur Leukocyte Esterase Negative, Urine RBC 0-5 SEEN, Urine WBC 0 SEEN, Ur Squamous Epith Cells 0 SEEN, Urine Bacteria 0 SEEN, Urine Mucus 0 SEEN 05/08/18 05:30: Sodium 142, Potassium 3.4 L, Chloride 110 H, Carbon Dioxide 18.0 L, Anion Gap 14, BUN 9, Creatinine 0.50 L, Estim Creat Clear Calc 173.12, Est GFR (MDRD) Af Amer 218, Est GFR (MDRD) Non-Af 180, BUN/Creatinine Ratio 18.1, Glucose 65 L, Calcium 6.6 L, Magnesium 0.6 L*, Total Bilirubin 1.30 H, AST 53 H, ALT 43, Alkaline Phosphatase 78, Total Protein 5.7 L, Albumin 2.5 L, Globulin 3.2, Albumin/Globulin Ratio 0.8 L, Lipase 548 H 05/08/18 06:44: POC Glucose 82 Current Medications Acetaminophen (Tylenol) 500 mg PO Q4H PRN PRN PRN Reason: Temp > 100.4 F Al Hydroxide/Mg Hydroxide (Mylanta Ii) 30 ml PO Q6H PRN PRN PRN Reason: dyspesia Bisacodyl (Dulcolax) 10 mg RECTAL DAILY PRN PRN Reason: Constipation Ciprofloxacin HCl (Ciloxan) 2 drop EACH EYE Q4 [facility] Last Admin: 05/08/18 10:52 Dose: 2 drop Enoxaparin Sodium (Lovenox) 40 mg SC DAILY@1000 [facility] Last Admin: 05/07/18 09:22 Dose: 40 mg Potassium Chloride/Sodium Chloride (Kcl 20meq In 0.45% Ns 1000ml) 1,000 mls @ 150 mls/hr IV .Q6H40M [facility] Last Admin: 05/08/18 12:15 Dose: 150 mls/hr Loperamide HCl (Imodium) 2 - 4 mg PO UD PRN PRN Reason: LOOSE STOOLS Lorazepam (Ativan) 2 mg IV Q2H PRN PRN; Protocol PRN Reason: CIWA score > 8 but <15 Last Admin: 05/08/18 03:08 Dose: 2 mg Lorazepam (Ativan) 1 mg IV Q4H PRN PRN PRN Reason: Severe Anxiety Lorazepam (Ativan) 2 mg IV UD PRN; Protocol PRN Reason: CIWA score >/=15. Last Admin: 05/07/18 04:37 Dose: 2 mg Lorazepam (Ativan) 2 mg IV X1 PRN PRN Reason: Seizure Morphine Sulfate () 2 mg IV Q2H PRN PRN PRN Reason: SEVERE PAIN (6-04/07) Last Admin: 05/07/18 13:01 Dose: 2 mg Nutritional Formula (Lactose Free) (Ensure Enlive) 120 ml PO 4X/DAY [facility] Last Admin: 05/08/18 11:01 Dose: Not Given Ondansetron HCl (Zofran) 8 mg IV Q6H PRN PRN PRN Reason: NAUSEA Last Admin: 05/04/18 08:57 Dose: 8 mg Ondansetron HCl (Zofran Odt) 4 mg PO Q6H PRN PRN PRN Reason: NAUSEA Promethazine HCl (Phenergan) 12.5 mg IV Q6H PRN PRN PRN Reason: NAUSEA/VOMITING Senna (Senokot) 1 tablet PO QHS PRN PRN PRN Reason: Constipation Thiamine [facility] ([facility]amin B[facility]) [facility] Last Admin: 05/08/18 11:02 Dose: Not Given Trazodone HCl (Desyrel) 50 mg PO QHS [facility] Last Admin: 05/07/18 22:08 Dose: 50 mg Medical Necessity - Tobacco Use Smoking Status: Never smoker Assessment/Plan All Active Problems Pancreatitis (Acute) Alcohol withdrawal (Acute) Fall (Acute) 1. acute alcoholic pancreatitis * improving * continue IVF * advance diet to regular 2. acute alcohol withdrawal * ongoing * still receiving PRN Ativan * received 3 bags of Folic Acid * continue thiamine * last drink was 05/03 * no DTs at this time, but still could devolve given his extensive consumption (2 bottles of wine/day) * [employer] to facilitate outpt mgmt * Per his : plan is to stay in [place] (for the time being) after discharge * Per , patient is to go to [facility] 3. Alcoholic hepatitis * improving * mild elevation * improving * patient states that he has had fatty liver on previous scans 4. Fall * unwitnessed * maybe due to weakness compounded by withdrawal and medications * head CT unremarkable * no additional work up necessary at this time 5. Encephalopathy * probably metabolic d/t Alcohol withdrawal, but cannot rule out medication component * dc librium 6. DVT proph: LMWH 7. Dysuria: UA negative 8. Hypomagnesemia * replace * monitor 9. Hypokalemia * replace K and MG * monitor Discussed extensively with the patient's , who was very upset at learning about the fall, but reassurance was provided and was much more calm later. Patient will be a level of care in the ICU given his falls and confusion. Greater than 50 minutes of which greater than 50% of the time was discussing with the patient's about the fall, review of data, and plan. Code Visit Inpatient E&M: 22204 Subs Hosp L3
--- NOTE | 2018-05-08 13:26 | NURSING ---
Called and spoke with patient's . Informed her that patient has been transferred to the ICU-4. Patient was awake and alert, sitting up in bed. [employer] OPERATOR at bedside assisting him with his meal. was very thankful for the care he received today.
--- NOTE | 2018-05-08 13:29 | NURSING ---
Spoke with LORI Somers on ICU. Informed him that patient will still need his Lovenox injection pending okay from Dr. Ames if no further testing is to be done.
--- NOTE | 2018-05-08 14:01 | NURSING ---
received to icu #4, assess completed, sr hr 83, portable chest x-ray completed
[2018-05-08] MEDS: Enoxaparin 40 MG/0.4 ML Syringe SC (14:03)
--- NOTE | 2018-05-08 15:01 | NURSING ---
called informed how to enter icu area updated on pt condition, Lovenox was given, portable chest x-ray completed, voiced understanding will be in around 4 pm
--- NOTE | 2018-05-08 15:24 | NURSING ---
visiting given pamphlet with unit phone number & visiting hours, encouraged to call any time, voiced understanding
--- NOTE | 2018-05-08 18:44 | NURSING ---
cwal 19 , very combative , swinging arms & yelling @ staff, medicated as per order, pt safety maintained
[2018-05-08] MEDS: traZODone 50 MG Tablet PO (21:07)
[2018-05-09] VITALS (10 sets, daily range): BP systolic 96–139; BP diastolic 55–91; PULSE 55–99; RESP 17–22; TEMP 36.2–37.3; O2SAT 94–97
[2018-05-09] MEDS: Ciprofloxacin 0.3% 2.5ml Bottle 2 DRP EACH EYE ×6 (02:10→21:57)
[2018-05-09 05:08] LABS: Absolute Lymphocyte Count 0.74 X10^3/ul (0.83-4.51); Absolute Neutrophil Count 1.7 X10^3/uL (2.0-7.7); Basophil# 0.02 X10^3/uL; Basophil% 0.6 % (0-1); Eosinophil# 0.24 X10^3/uL; Eosinophils% 7.2 % (0-5); Hematocrit 34.9 % (40-54); Hemoglobin 11.9 g/dl (13.0-16.5); Lymphocyte # 0.74 X10^3/ul (4.0); Lymphocyte % 22.3 % (19-41); Mean Corp Hgb Conc 34.1 g/gl (32-36); Mean Corpuscular Hgb 34.2 pg (27.0-32.0); Mean Corpuscular Volume 100.3 fL (80-94); Mean Platelet Vol. 10.3 fl (6.2-12.0); Monocyte# 0.61 X10^3/uL; Monocyte% 18.4 % (0-10); Neutrophil % 51.2 % (47-70); Platelet Count 167 K/mm3 (150-450); RBC Distribution Width CV 13.4 % (11.6-14.6); RBC Distribution Width SD 48.7 fl (35.1-43.9); Red Blood Count 3.48 M/mm3 (4.6-6.2); White Blood Count 3.3 K/mm3 (4.4-11.0)
[2018-05-09 05:14] LABS: POSITIVE COUNT NO; POSITIVE DIFFERENTIAL NO; POSITIVE MORPHOLOGY NO
[2018-05-09 05:20] LABS: ALB/GLOB Ratio 0.7 RATIO (0.9-2.4); AST(SGOT) 41 U/L (15-37); Alanine Aminotransfer ALT/SGPT 40 U/L (16-61); Albumin, Serum 2.5 g/dL (3.2-5.0); Alkaline Phosphatase 113 U/L (45-117); Anion Gap 11 (5-15); BUN 7 mg/dL (7-18); BUN/Creat Ratio 12.3 RATIO (10-20); Calcium,Total 6.9 mg/dL (8.5-10.1); Chloride 110 mmol/L (98-107); Creatinine, Serum 0.57 mg/dL (0.70-1.30); EST Glomerular Filtration Rate 154 mL/min (>60); Est Glom Filt Rate - Afr Amer 187 mL/min (>60); Estimated Creatinine Clearance 151.86 ml/min; Globulin 3.4 g/dL (2.2-4.2); Glucose 106 mg/dL (74-106); Lipase 845 U/L (73-393); Potassium 3.5 mmol/L (3.5-5.1); Protein, Total 5.9 g/dL (6.4-8.2); Sodium Level 142 mmol/L (136-145)
[2018-05-09] MEDS: Thiamine Hydrochloride 100 MG Tablet 200 MG PO (08:17)
--- NOTE | 2018-05-09 08:34 | PCM.PN.HOSP ---
Patient Problems: Active and Suspected Problems Hypomagnesemia (Acute) Hypokalemia (Acute) Acute alcoholic hepatitis (Acute) Pancreatitis (Acute) Alcohol withdrawal (Acute) Subjective: No abdominal pain. No other falls. Vitals/I&O's: Vital Signs Temp Pulse Resp BP Pulse Ox 36.2 C L 58 L 22 H 139/91 H 94 05/09/18 02:15 05/09/18 04:00 05/09/18 02:15 05/09/18 02:15 05/09/18 03:36 Oxygen Delivery Method Room Air Weight: 83.8 kg Body Mass Index (BMI) 24.3 Intake and Output for Last 24 Hours 05/07/18 05/08/18 05/09/18 23:59 23:59 23:59 Intake Total 5673 / 5673 3153.9 / 3153.9 854 / 854 Output Total 2825 / 2825 1850 / 1850 Balance 2848 / 2848 1303.9 / 1303.9 854 / 854 General: Cooperative, No apparent distress, - - still slightly groggy, but more alert than he has been the past 2 days. HEENT: Normocephalic Oral: Moist Mucosa, No Gingival or Mucosal Lesions/ Ulcerations Neck: No Nodes, Thyroid Normal Size and Texture Lungs: Clear to auscultation, Normal air movement, No rhonchi, No wheeze Cardiovascular: Regular rate, Regular Rhythm, Normal S1, Normal S2, No murmurs Abdomen: Bowel Sounds Present, Soft, Non Tender, Non-Distended, No Hepato-splenomegaly Extremities: No edema, No Calf Tenderness Skin: No rashes, No breakdown Musculoskeletal: No Tenderness to Palpation of Joints or Extremities, No Muscle Wasting Neurological: Slurred Speech - but improved, Muscle tone normal, - - moves all extemities equally. Psych/Mental Status: Normal Affect, Appropriate Laboratory Results 05/09/18 04:55: WBC 3.3 L, RBC 3.48 L, Hgb 11.9 L, Hct 34.9 L, MCV 100.3 H, MCH 34.2 H, MCHC 34.1, RDW 13.4, RDW Differential 48.7 H, Plt Count 167, MPV 10.3, Immature Gran % (Auto) 0.300, Neut % (Auto) 51.2, Lymph % (Auto) 22.3, Clarke % (Auto) 18.4 H, Eos % (Auto) 7.2 H, Baso % (Auto) 0.6, Absolute Neuts (auto) 1.7 L, Absolute Lymphs (auto) 0.74 L, Total Counted Not Reportable 05/09/18 04:55: Sodium 142, Potassium 3.5, Chloride 110 H, Carbon Dioxide 21.0, Anion Gap 11, BUN 7, Creatinine 0.57 L, Estim Creat Clear Calc 151.86, Est GFR (MDRD) Af Amer 187, Est GFR (MDRD) Non-Af 154, BUN/Creatinine Ratio 12.3, Glucose 106, Calcium 6.9 L, Magnesium 1.0 L, Total Bilirubin 1.10 H, AST 41 H, ALT 40, Alkaline Phosphatase 113, Total Protein 5.9 L, Albumin 2.5 L, Globulin 3.4, Albumin/Globulin Ratio 0.7 L, Lipase 845 H Current Medications Acetaminophen (Tylenol) 500 mg PO Q4H PRN PRN PRN Reason: Temp > 100.4 F Al Hydroxide/Mg Hydroxide (Mylanta Ii) 30 ml PO Q6H PRN PRN PRN Reason: dyspesia Bisacodyl (Dulcolax) 10 mg RECTAL DAILY PRN PRN Reason: Constipation Ciprofloxacin HCl (Ciloxan) 2 drop EACH EYE Q4 [facility] Last Admin: 05/09/18 04:54 Dose: 2 drop Enoxaparin Sodium (Lovenox) 40 mg SC DAILY@1000 [facility] Last Admin: 05/08/18 14:03 Dose: 40 mg Potassium Chloride/Sodium Chloride (Kcl 20meq In 0.45% Ns 1000ml) 1,000 mls @ 150 mls/hr IV .Q6H40M [facility] Last Admin: 05/09/18 05:47 Dose: Not Given Magnesium Sulfate (4 Gm/100 Ml) 4 gm in 100 mls @ 25 mls/hr IV X1 ONE Stop: 05/09/18 11:29 Last Admin: 05/09/18 08:22 Dose: 25 mls/hr Loperamide HCl (Imodium) 2 - 4 mg PO UD PRN PRN Reason: LOOSE STOOLS Lorazepam (Ativan) 2 mg IV Q2H PRN PRN; Protocol PRN Reason: CIWA score > 8 but <15 Last Admin: 05/08/18 03:08 Dose: 2 mg Lorazepam (Ativan) 1 mg IV Q4H PRN PRN PRN Reason: Severe Anxiety Lorazepam (Ativan) 2 mg IV UD PRN; Protocol PRN Reason: CIWA score >/=15. Last Admin: 05/08/18 18:14 Dose: 2 mg Lorazepam (Ativan) 2 mg IV X1 PRN PRN Reason: Seizure Morphine Sulfate () 2 mg IV Q2H PRN PRN PRN Reason: SEVERE PAIN (-04/07) Last Admin: 05/07/18 13:01 Dose: 2 mg Nutritional Formula (Lactose Free) (Ensure Enlive) 120 ml PO 4X/DAY [facility] Last Admin: 05/08/18 21:01 Dose: Not Given Ondansetron HCl (Zofran) 8 mg IV Q6H PRN PRN PRN Reason: NAUSEA Last Admin: 05/04/18 08:57 Dose: 8 mg Ondansetron HCl (Zofran Odt) 4 mg PO Q6H PRN PRN PRN Reason: NAUSEA Promethazine HCl (Phenergan) 12.5 mg IV Q6H PRN PRN PRN Reason: NAUSEA/VOMITING Senna (Senokot) 1 tablet PO QHS PRN PRN PRN Reason: Constipation Thiamine [facility]) [facility] Last Admin: 05/09/18 08:17 Dose: 200 mg Trazodone HCl (Desyrel) 50 mg PO QHS [facility] Last Admin: 05/08/18 21:07 Dose: 50 mg Medical Necessity - Tobacco Use Smoking Status: Never smoker Assessment/Plan All Active Problems Hypomagnesemia (Acute) Hypokalemia (Acute) Acute alcoholic hepatitis (Acute) Fall (Acute) Pancreatitis (Acute) Alcohol withdrawal (Acute) 1. acute alcoholic pancreatitis lipase up slightly to 845 (from 548) continue IVF continue regular diet 2. acute alcohol withdrawal improved ongoing still receiving PRN Ativan (last dosing on 05/08 at 1814) received 3 bags of Folic Acid continue thiamine last drink was 05/03 Per his : plan is to stay in [place] (for the time being) after discharge Per , patient is to go to [facility] 3. Alcoholic hepatitis improving mild elevation improving patient states that he has had fatty liver on previous scans 4. Fall unwitnessed maybe due to weakness compounded by withdrawal and medications head CT unremarkable no additional work up necessary at this time 5. Encephalopathy improved probably metabolic d/t Alcohol withdrawal, but cannot rule out medication component librium stopped 05/08 6. DVT proph: LMWH 7. Dysuria: UA negative 8. Hypomagnesemia improved, but still profoundly low replace monitor 9. Hypokalemia improved, but still ongoing replace K and MG monitor 10. Disposition: pending resolution of alcohol withdrawal and improvement (not necessarily a normal) of lipase hopefully next 24-48h Code Visit Inpatient E&M: 15641 Subs Hosp L3
--- NOTE | 2018-05-09 08:43 | PN_ITS ---
Patient Problems: Active and Suspected Problems Hypomagnesemia (Acute) Hypokalemia (Acute) Acute alcoholic hepatitis (Acute) Pancreatitis (Acute) Alcohol withdrawal (Acute) Subjective: No abdominal pain. No other falls. Vitals/I&O's: Vital Signs Temp Pulse Resp BP Pulse Ox 36.2 C L 58 L 22 H 139/91 H 94 05/09/18 02:15 05/09/18 04:00 05/09/18 02:15 05/09/18 02:15 05/09/18 03:36 Oxygen Delivery Method Room Air Weight: 83.8 kg Body Mass Index (BMI) 24.3 Intake and Output for Last 24 Hours 05/07/18 05/08/18 05/09/18 23:59 23:59 23:59 Intake Total 5673 / 5673 3153.9 / 3153.9 854 / 854 Output Total 2825 / 2825 1850 / 1850 Balance 2848 / 2848 1303.9 / 1303.9 854 / 854 General: Cooperative, No apparent distress, - - still slightly groggy, but more alert than he has been the past 2 days. HEENT: Normocephalic Oral: Moist Mucosa, No Gingival or Mucosal Lesions/ Ulcerations Neck: No Nodes, Thyroid Normal Size and Texture Lungs: Clear to auscultation, Normal air movement, No rhonchi, No wheeze Cardiovascular: Regular rate, Regular Rhythm, Normal S1, Normal S2, No murmurs Abdomen: Bowel Sounds Present, Soft, Non Tender, Non-Distended, No Hepato- splenomegaly Extremities: No edema, No Calf Tenderness Skin: No rashes, No breakdown Musculoskeletal: No Tenderness to Palpation of Joints or Extremities, No Muscle Wasting Neurological: Slurred Speech - but improved, Muscle tone normal, - - moves all extemities equally. Psych/Mental Status: Normal Affect, Appropriate Laboratory Results 05/09/18 04:55: WBC 3.3 L, RBC 3.48 L, Hgb 11.9 L, Hct 34.9 L, MCV 100.3 H, MCH 34.2 H, MCHC 34.1, RDW 13.4, RDW Differential 48.7 H, Plt Count 167, MPV 10.3, Immature Gran % (Auto) 0.300, Neut % (Auto) 51.2, Lymph % (Auto) 22.3, [place] % (Auto) 18.4 H, Eos % (Auto) 7.2 H, Baso % (Auto) 0.6, Absolute Neuts (auto) 1.7 L, Absolute Lymphs (auto) 0.74 L, Total Counted Not Reportable 05/09/18 04:55: Sodium 142, Potassium 3.5, Chloride 110 H, Carbon Dioxide 21.0, Anion Gap 11, BUN 7, Creatinine 0.57 L, Estim Creat Clear Calc 151.86, Est GFR (MDRD) Af Amer 187, Est GFR (MDRD) Non-Af 154, BUN/Creatinine Ratio 12.3, Glucose 106, Calcium 6.9 L, Magnesium 1.0 L, Total Bilirubin 1.10 H, AST 41 H, ALT 40, Alkaline Phosphatase 113, Total Protein 5.9 L, Albumin 2.5 L, Globulin 3.4, Albumin/Globulin Ratio 0.7 L, Lipase 845 H Current Medications Acetaminophen (Tylenol) 500 mg PO Q4H PRN PRN PRN Reason: Temp > 100.4 F Al Hydroxide/Mg Hydroxide (Mylanta Ii) 30 ml PO Q6H PRN PRN PRN Reason: dyspesia Bisacodyl (Dulcolax) 10 mg RECTAL DAILY PRN PRN Reason: Constipation Ciprofloxacin HCl (Ciloxan) 2 drop EACH EYE Q4 [facility] Last Admin: 05/09/18 04:54 Dose: 2 drop Enoxaparin Sodium (Lovenox) 40 mg SC DAILY@1000 [facility] Last Admin: 05/08/18 14:03 Dose: 40 mg Potassium Chloride/Sodium Chloride (Kcl 20meq In 0.45% Ns 1000ml) 1,000 mls @ 150 mls/hr IV .Q6H40M [facility] Last Admin: 05/09/18 05:47 Dose: Not Given Magnesium Sulfate (4 Gm/100 Ml) 4 gm in 100 mls @ 25 mls/hr IV X1 ONE Stop: 05/09/18 11:29 Last Admin: 05/09/18 08:22 Dose: 25 mls/hr Loperamide HCl (Imodium) 2 - 4 mg PO UD PRN PRN Reason: LOOSE STOOLS Lorazepam (Ativan) 2 mg IV Q2H PRN PRN; Protocol PRN Reason: CIWA score > 8 but <15 Last Admin: 05/08/18 03:08 Dose: 2 mg Lorazepam (Ativan) 1 mg IV Q4H PRN PRN PRN Reason: Severe Anxiety Lorazepam (Ativan) 2 mg IV UD PRN; Protocol PRN Reason: CIWA score >/=15. Last Admin: 05/08/18 18:14 Dose: 2 mg Lorazepam (Ativan) 2 mg IV X1 PRN PRN Reason: Seizure Morphine Sulfate () 2 mg IV Q2H PRN PRN PRN Reason: SEVERE PAIN (-04/07) Last Admin: 05/07/18 13:01 Dose: 2 mg Nutritional Formula (Lactose Free) (Ensure Enlive) 120 ml PO 4X/DAY [facility] Last Admin: 05/08/18 21:01 Dose: Not Given Ondansetron HCl (Zofran) 8 mg IV Q6H PRN PRN PRN Reason: NAUSEA Last Admin: 05/04/18 08:57 Dose: 8 mg Ondansetron HCl (Zofran Odt) 4 mg PO Q6H PRN PRN PRN Reason: NAUSEA Promethazine HCl (Phenergan) 12.5 mg IV Q6H PRN PRN PRN Reason: NAUSEA/VOMITING Senna (Senokot) 1 tablet PO QHS PRN PRN PRN Reason: Constipation Thiamine HCl (Vitamin B1) [facility] Last Admin: 05/09/18 08:17 Dose: 200 mg Trazodone HCl (Desyrel) 50 mg PO QHS [facility] Last Admin: 05/08/18 21:07 Dose: 50 mg Medical Necessity - Tobacco Use Smoking Status: Never smoker Assessment/Plan All Active Problems Hypomagnesemia (Acute) Hypokalemia (Acute) Acute alcoholic hepatitis (Acute) Fall (Acute) Pancreatitis (Acute) Alcohol withdrawal (Acute) 1. acute alcoholic pancreatitis * lipase up slightly to 845 (from 548) * continue IVF * continue regular diet 2. acute alcohol withdrawal * improved * ongoing * still receiving PRN Ativan (last dosing on 05/08 at 1814) * received 3 bags of Folic Acid * continue thiamine * last drink was 05/03 * Per his : plan is to stay in [place] (for the time being) after discharge * Per , patient is to go to [facility] 3. Alcoholic hepatitis * improving * mild elevation * improving * patient states that he has had fatty liver on previous scans 4. Fall * unwitnessed * maybe due to weakness compounded by withdrawal and medications * head CT unremarkable * no additional work up necessary at this time 5. Encephalopathy * improved * probably metabolic d/t Alcohol withdrawal, but cannot rule out medication component * librium stopped 05/08 6. DVT proph: LMWH 7. Dysuria: UA negative 8. Hypomagnesemia * improved, but still profoundly low * replace * monitor 9. Hypokalemia * improved, but still ongoing * replace K and MG * monitor 10. Disposition: * pending resolution of alcohol withdrawal and improvement (not necessarily a normal) of lipase * hopefully next 24-48h Code Visit Inpatient E&M: 20829 Subs Hosp L3
--- NOTE | 2018-05-09 09:33 | NURSING ---
attempts to educate pt's re insolation met w/derision and rudeness. 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 This RN then attempted to encourage to at the least be sure to carefully wash your hands before you leave the room as you will be touching elevator buttons... 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
[2018-05-09] MEDS: Enoxaparin 40 MG/0.4 ML Syringe SC (10:12)
[2018-05-09] MEDS: LORazepam 2 MG/ML Syringe IV (16:24)
--- NOTE | 2018-05-09 18:19 | NURSING ---
pt unable to comprehend teaching d/t intermittent confusion. pt resistant to teaching.
[2018-05-09] MEDS: traZODone 50 MG Tablet PO (21:57)
[2018-05-10] VITALS (9 sets, daily range): BP systolic 114–132; BP diastolic 72–78; PULSE 62–94; RESP 20–24; TEMP 36.4–37.1; O2SAT 95–99
[2018-05-10] MEDS: Ciprofloxacin 0.3% 2.5ml Bottle 2 DRP EACH EYE ×6 (02:34→21:03)
[2018-05-10] MEDS: LORazepam 2 MG/ML Syringe IV (03:23)
[2018-05-10 04:01] LABS: ALB/GLOB Ratio 0.8 RATIO (0.9-2.4); AST(SGOT) 52 U/L (15-37); Alanine Aminotransfer ALT/SGPT 45 U/L (16-61); Albumin, Serum 2.7 g/dL (3.2-5.0); Alkaline Phosphatase 143 U/L (45-117); Anion Gap 9 (5-15); BUN 7 mg/dL (7-18); BUN/Creat Ratio 10.2 RATIO (10-20); Calcium,Total 7.5 mg/dL (8.5-10.1); Chloride 112 mmol/L (98-107); Creatinine, Serum 0.69 mg/dL (0.70-1.30); EST Glomerular Filtration Rate 124 mL/min (>60); Est Glom Filt Rate - Afr Amer 150 mL/min (>60); Estimated Creatinine Clearance 125.45 ml/min; Globulin 3.3 g/dL (2.2-4.2); Glucose 121 mg/dL (74-106); Lipase 1042 U/L (73-393); Magnesium 1.2 mg/dL (1.6-2.6); Sodium Level 144 mmol/L (136-145)
[2018-05-10] MEDS: Thiamine Hydrochloride 100 MG Tablet 200 MG PO (09:34)
[2018-05-10] MEDS: Enoxaparin 40 MG/0.4 ML Syringe SC (09:36)
--- NOTE | 2018-05-10 09:46 | CASEMGMT ---
SW spoke with patient's per her request. She would like a treatment facility closer to [place]. She asked SW about [facility] in [place]. SW told her SW will check on this. She also asked about whether or not [facility] has private rooms. SW told her SW would have to check on this. Plan: SW checking on inpatient alcohol treatment for patient. Emily HARMAN MSW
[2018-05-10] MEDS: Polyethylene Glycol 3350 17 GM PACKET PO (10:47)
--- NOTE | 2018-05-10 12:56 | CASEMGMT ---
Physician told ZAC patient and his want him to go home and do outpatient therapy. ZAC spoke with patient and confirmed this plan. ZAC did give him a list of local outpatient treatment facilities. ZAC will let [facility] and [facility] know about the change in plans. Emily HARMAN MSW
[2018-05-10] MEDS: 0.9% NaCl Peripheral Flush Adult/Peds IV ×2 (18:04→21:04)
--- NOTE | 2018-05-10 18:11 | PN_ITS ---
Patient Problems: Active and Suspected Problems Pancreatitis (Acute) Alcohol withdrawal (Acute) Subjective: Patient was seen and examined today, I talked at length with his who is at the bedside today, patient continues to have weakness, I do not believe he is ready to be discharged yet, I think he would benefit from continued physical therapy. talked about getting an MRI of the patient's shoulder but he is able to move his shoulder and I do not believe that this MRI would be of any help especially since patient has had surgery on her shoulder this year. Patient's lipase was slightly more elevated today but his abdomen abdomen is completely nontender and he is able to eat. - Physical Exam General: Alert, Cooperative, No apparent distress, Well developed, Well nourished HEENT: Atraumatic, PERRLA, EOMI, Normocephalic Oral: Moist Mucosa Neck: Supple, No Nuchal Rigidity, Trachea Midline, Thyroid Normal Size and Texture Lungs: Clear to auscultation, Normal air movement, No rhonchi, No wheeze, No rales Cardiovascular: Regular rate, Regular Rhythm, Normal S1, Normal S2, No murmurs, No Ectopic Activity, PMI Normal, No rub noted, No Gallop Abdomen: Bowel Sounds Present, Soft, Non Tender, Non-Distended, No hernias noted Extremities: No clubbing, No cyanosis, No edema Neurological: Cranial nerves II-XII grossly intact, Neuro grossly intact, Sensory exam intact to light touch and pain, Coordination normal Psych/Mental Status: Normal Affect, - - Patient is alert, he is appropriate to this examiner in answering questions. Vital Signs Temp Pulse Resp BP Pulse Ox 97.5 F L 81 20 H 121/78 H 97 05/10/18 14:00 05/10/18 15:45 05/10/18 14:00 05/10/18 14:00 05/10/18 14:00 Oxygen Delivery Method Room Air Weight: 83.8 kg Body Mass Index (BMI) 24.3 Intake and Output for Last 24 Hours 05/08/18 05/09/18 05/10/18 23:59 23:59 23:59 Intake Total 3153.9 / 3153.9 4673 / 4673 2324 / 2324 Output Total 1850 / 1850 1650 / 1650 400 / 400 Balance 1303.9 / 1303.9 3023 / 3023 1924 / 1924 Microbiology Past 72 Hours 05/07/18 17:25 Urine Culture - Final Urine, Clean Catch Mixed Gram Positive Organisms Laboratory Tests Past 24 Hrs 05/10/18 03:30 Sodium 144 Potassium 4.0 Chloride 112 H Carbon Dioxide 23.0 Anion Gap 9 BUN 7 Creatinine 0.69 L Estim Creat Clear Calc 125.45 Est GFR (MDRD) Af Amer 150 Est GFR (MDRD) Non-Af 124 BUN/Creatinine Ratio 10.2 Glucose 121 H Calcium 7.5 L Magnesium 1.2 L Total Bilirubin 0.80 AST 52 H ALT 45 Alkaline Phosphatase 143 H Total Protein 6.0 L Albumin 2.7 L Globulin 3.3 Albumin/Globulin Ratio 0.8 L Lipase 1042 H Medical Necessity - Tobacco Use Smoking Status: Never smoker Assessment/Plan All Active Problems Acute alcoholic hepatitis (Acute) Hypokalemia (Acute) Hypomagnesemia (Acute) Fall (Acute) Pancreatitis (Acute) Alcohol withdrawal (Acute) #1 acute alcoholic pancreatitis-even though the patient's lipase was more elevated than yesterday, his symptoms of abdominal pain appear to have resolved- patient does not have any abdominal pain today on palpation, patient will continue present treatment, he will continue to be seen by PT and OT #2 acute alcohol withdrawal-patient is only getting as needed Ativan, he does not appear to be agitated today or anxious #3 alcoholic hepatitis-patient's liver enzymes seem to be trending downward #4 chronic alcoholism-I talked with the patient and his today, patient would rather go home and the is not against this if he is strong enough to do this. For now, we will not plan on him going to an alcohol rehab center, he can be seen as an outpatient for continuing alcohol detox #5 generalized debility-secondary to acute pancreatitis and chronic alcoholism- continue PT and OT #6 hypomagnesemia-patient was given IV magnesium, I will recheck his level in the morning Code Visit Inpatient E&M: 28134 Subs Hosp L2
[2018-05-10] MEDS: traZODone 50 MG Tablet PO (21:02)
[2018-05-11] VITALS (8 sets, daily range): BP systolic 99–130; BP diastolic 69–75; PULSE 58–110; RESP 16–24; TEMP 36.6–36.8; O2SAT 97–98
[2018-05-11] MEDS: Ciprofloxacin 0.3% 2.5ml Bottle 2 DRP EACH EYE ×5 (01:53→17:41)
[2018-05-11 02:05] LABS: Mucous, Urine 0 SEEN /hpf (<or=2+); Red Blood Cells-Urine 0 SEEN /hpf (0-5); Squamous Epithelial Cells - UA 0 SEEN /hpf (0-5)
[2018-05-11 02:06] LABS: Color, Urine Yellow (Yellow); Glucose, Dipstick Normal (Normal); Ketone-Dipstick Negative (Negative); Leukocyte Esterase-Dipstick Negative /ul (Negative); Nitrite-Dipstick Negative (Negative); Occult Blood-Urine Negative /ul (Negative); Protein-Dipstick Negative (Negative); Urine Bilirubin Dipstick Negative (Negative); Urine Clarity Sl. Cloudy (Clear); Urine Urobilinogen Normal (Normal)
[2018-05-11 02:37] LABS: Amorphous Sediment 1+; Bacteria RARE /hpf (None Seen); White Blood Cells 0-5 SEEN /hpf (0-5)
[2018-05-11] MEDS: 0.9% NaCl Peripheral Flush Adult/Peds IV ×3 (05:05→17:43)
[2018-05-11 05:23] LABS: Magnesium 1.3 mg/dL (1.6-2.6)
[2018-05-11] MEDS: Magnesium Oxide 400 MG Tablet PO ×2 (08:43→17:41)
[2018-05-11] MEDS: Thiamine Hydrochloride 100 MG Tablet 200 MG PO (08:43)
[2018-05-11] MEDS: Enoxaparin 40 MG/0.4 ML Syringe SC (10:04)
--- NOTE | 2018-05-11 10:26 | CASEMGMT ---
Social Work Met with pt and in room to discuss d/c plans. Pt stating that [facility] is too far away and that [facility] in [place] only has semi private rooms and she does not feel this will work for pt. has considered pt returning home but is concerned as pt is very weak. Pt currently requiring two person assist for transfer from bed to chair. SW spoke with pt and about SNF placement for physical rehab prior to returning home and seeking outpt alcohol treatment. Pt and are agreeable to this and feel this would be best next step for pt. SW provided written list of in network facilities. Pt first choice is [facility], second choice [facility] and third choice [facility]. Pt current insurance is [employer] and pt stating that Aetna ends at the end of April and May 29 new insurance will be [employer] (policy #[id number]). ZAC explained that precert will be started with [employer] and that if approved, pt will need to leave SNF on or before May 29 or private pay for room or work with facility to get new precert with the new insurance company. Pt expresses understanding. Phone call to Rosette at [facility] and they do have private rooms available. Insurance situation explained to Rosette. Message left with Glendy Cabrera LPN to start referral. ZAC to follow for placement. Plan: [facility], pending acceptance and insurance authorization KRYS Carpenter
--- NOTE | 2018-05-11 10:49 | CASEMGMT ---
Per ZAC Lofton, referral needs sent to [facility] for patient. ZAC had already spoken to walker Dinero. Referral faxed to [phone]. Included info re: new insurance coverage effective 05/29, [employer] #[id number]. Fax confirmation received. Marine Aj LPN Clinical Support
--- NOTE | 2018-05-11 11:05 | PCM.PROGNOTE ---
Patient Problems: Active and Suspected Problems Pancreatitis (Acute) Alcohol withdrawal (Acute) Subjective: Patient was seen and examined today in ICU, I woke him from sleep, he has no complaints of any abdominal discomfort. Nursing states that the patient has been confused at times but is directable. According to high school social studies tutor, patient is agreed to go to an extended care facility for rehab and the is also consented to it, high school social studies tutor will contact his insurance to verify coverage at a usp facility. Patient's magnesium was low again this morning, I wrote for additional magnesium supplementation and oral magnesium also. Magnesium level will be rechecked tomorrow - Physical Exam General: Alert, Oriented x3, Cooperative, No apparent distress, Well developed HEENT: Atraumatic, PERRLA, EOMI, Normocephalic Oral: Moist Mucosa Neck: Supple, No Nuchal Rigidity, Trachea Midline, Thyroid Normal Size and Texture Lungs: Clear to auscultation, Normal air movement, No rhonchi, No wheeze, No rales Cardiovascular: Regular rate, Regular Rhythm, Normal S1, Normal S2, No murmurs, No Ectopic Activity, PMI Normal, No rub noted, No Gallop Abdomen: Bowel Sounds Present, Soft, Non Tender, Non-Distended Extremities: No clubbing, No cyanosis, No edema, Capillary Refill Less than 3 Seconds Skin: No rashes, No breakdown Musculoskeletal: No Tenderness to Palpation of Joints or Extremities Neurological: Cranial nerves II-XII grossly intact, Neuro grossly intact, Sensory exam intact to light touch and pain, Coordination normal Psych/Mental Status: Normal Affect, Appropriate Vital Signs Temp Pulse Resp BP Pulse Ox 97.9 F 65 16 116/69 98 05/11/18 08:00 05/11/18 08:00 05/11/18 08:00 05/11/18 08:00 05/11/18 08:00 Oxygen Delivery Method Room Air Weight: 83.8 kg Body Mass Index (BMI) 24.3 Intake and Output for Last 24 Hours 05/09/18 05/10/18 05/11/18 23:59 23:59 23:59 Intake Total 4673 / 4673 2324 / 2324 870 / 870 Output Total 1650 / 1650 400 / 400 200 / 200 Balance 3023 / 3023 1924 / 1924 670 / 670 Microbiology Past 72 Hours 05/07/18 17:25 Urine Culture - Final Urine, Clean Catch Mixed Gram Positive Organisms Laboratory Tests Past 24 Hrs 05/11/18 05/11/18 02:00 05:00 Magnesium 1.3 L Urine Color Yellow Urine Clarity Sl. Cloudy Urine pH 8.0 Ur Specific [place] 1.010 Urine Protein Negative Urine Glucose (UA) Normal Urine Ketones Negative Urine Occult Blood Negative Urine Nitrite Negative Urine Bilirubin Negative Urine Urobilinogen Normal Ur Leukocyte Esterase Negative Urine RBC 0 SEEN Urine WBC 0-5 SEEN Ur Squamous Epith Cells 0 SEEN Amorphous Sediment 1+ Urine Bacteria RARE Urine Mucus 0 SEEN Medical Necessity - Tobacco Use Smoking Status: Never smoker Assessment/Plan All Active Problems Acute alcoholic hepatitis (Acute) Hypokalemia (Acute) Hypomagnesemia (Acute) Fall (Acute) Pancreatitis (Acute) Alcohol withdrawal (Acute) #1 acute alcoholic wagtdtditaxx-lhfsgmwgv-zgekcayb current diet #2 acute alcohol withdrawal-patient is only getting as needed Ativan, he does not appear to be agitated today or anxious today #3 alcoholic hepatitis-resolving #4 chronic alcoholism #5 generalized debility-secondary to acute pancreatitis and chronic alcoholism-continue PT and OT, again we will seek temporary placement in a usp facility for the patient #6 hypomagnesemia-patient was given IV magnesium, I will recheck his level in the morning Code Visit Inpatient E&M: 20531 Init Hosp L3
--- NOTE | 2018-05-11 11:09 | PN_ITS ---
Patient Problems: Active and Suspected Problems Pancreatitis (Acute) Alcohol withdrawal (Acute) Subjective: Patient was seen and examined today in ICU, I woke him from sleep, he has no complaints of any abdominal discomfort. Nursing states that the patient has been confused at times but is directable. According to manager social, patient is agreed to go to an extended care facility for rehab and the is also consented to it, manager social will contact his insurance to verify coverage at a detention facility. Patient's magnesium was low again this morning, I wrote for additional magnesium supplementation and oral magnesium also. Magnesium level will be rechecked tomorrow - Physical Exam General: Alert, Oriented x3, Cooperative, No apparent distress, Well developed HEENT: Atraumatic, PERRLA, EOMI, Normocephalic Oral: Moist Mucosa Neck: Supple, No Nuchal Rigidity, Trachea Midline, Thyroid Normal Size and Texture Lungs: Clear to auscultation, Normal air movement, No rhonchi, No wheeze, No rales Cardiovascular: Regular rate, Regular Rhythm, Normal S1, Normal S2, No murmurs, No Ectopic Activity, PMI Normal, No rub noted, No Gallop Abdomen: Bowel Sounds Present, Soft, Non Tender, Non-Distended Extremities: No clubbing, No cyanosis, No edema, Capillary Refill Less than 3 Seconds Skin: No rashes, No breakdown Musculoskeletal: No Tenderness to Palpation of Joints or Extremities Neurological: Cranial nerves II-XII grossly intact, Neuro grossly intact, Sensory exam intact to light touch and pain, Coordination normal Psych/Mental Status: Normal Affect, Appropriate Vital Signs Temp Pulse Resp BP Pulse Ox 97.9 F 65 16 116/69 98 05/11/18 08:00 05/11/18 08:00 05/11/18 08:00 05/11/18 08:00 05/11/18 08:00 Oxygen Delivery Method Room Air Weight: 83.8 kg Body Mass Index (BMI) 24.3 Intake and Output for Last 24 Hours 05/09/18 05/10/18 05/11/18 23:59 23:59 23:59 Intake Total 4673 / 4673 2324 / 2324 870 / 870 Output Total 1650 / 1650 400 / 400 200 / 200 Balance 3023 / 3023 1924 / 1924 670 / 670 Microbiology Past 72 Hours 05/07/18 17:25 Urine Culture - Final Urine, Clean Catch Mixed Gram Positive Organisms Laboratory Tests Past 24 Hrs 05/11/18 05/11/18 02:00 05:00 Magnesium 1.3 L Urine Color Yellow Urine Clarity Sl. Cloudy Urine pH 8.0 Ur Specific [place] 1.010 Urine Protein Negative Urine Glucose (UA) Normal Urine Ketones Negative Urine Occult Blood Negative Urine Nitrite Negative Urine Bilirubin Negative Urine Urobilinogen Normal Ur Leukocyte Esterase Negative Urine RBC 0 SEEN Urine WBC 0-5 SEEN Ur Squamous Epith Cells 0 SEEN Amorphous Sediment 1+ Urine Bacteria RARE Urine Mucus 0 SEEN Medical Necessity - Tobacco Use Smoking Status: Never smoker Assessment/Plan All Active Problems Acute alcoholic hepatitis (Acute) Hypokalemia (Acute) Hypomagnesemia (Acute) Fall (Acute) Pancreatitis (Acute) Alcohol withdrawal (Acute) #1 acute alcoholic smlqituyoueq-yscfqvjkt-xdhdodla current diet #2 acute alcohol withdrawal-patient is only getting as needed Ativan, he does not appear to be agitated today or anxious today #3 alcoholic hepatitis-resolving #4 chronic alcoholism #5 generalized debility-secondary to acute pancreatitis and chronic alcoholism- continue PT and OT, again we will seek temporary placement in a detention facility for the patient #6 hypomagnesemia-patient was given IV magnesium, I will recheck his level in the morning Code Visit Inpatient E&M: 06125 Init Hosp L3
--- NOTE | 2018-05-11 12:42 | CASEMGMT ---
Received voicemail from Rosette at [facility], they can accept patient but she is questioning whether to start pre-cert today or not. Rosette also questioning if patient has any isolation precautions. Contacted ZAC Lofton, [place] for [facility] to begin pre-cert. Voicemail left for Rosette of same and also that patient's order is for universal precautions.. Marine Aj LPN Clinical Support
--- NOTE | 2018-05-11 15:09 | CASEMGMT ---
Social Work Per Marine Cabrera [facility] is able to accept pt. Precert to be started at this time. Phone call placed to pt Eloisa and notified her of above. Explained that precert is needed prior to pt transfer to [facility]. Eloisa expresses understanding and agreement. to follow for SNF placement. Plan: [facility], pending insurance approval KRYS Carpenter
--- NOTE | 2018-05-11 15:46 | CHAPLAIN ---
Type of Pastoral Visit ___ Initial Visit _x__ Follow-up Visit ___ On-call Visit ___ General Patient Visit ___ Spiritual Assessment ___ Family Conference ___ Bereavement ___ Rapid Response ___ Code Blue ___ Other (describe below) Pastoral Care Referral From _x__ Patient ___ Family ___ Nurse ___ Physician ___ Soap Mixer ___ Retort Engineer ___ Other (describe below) Sacrament/Intervention _x__ Active listening ___ Anointing ___ Bahai ___ Bereavement ___ Communion _x__ Marj exploration ___ _x__ Life review _x__ Prayer ___ Reconciliation ___ Sacrament of Sick _x__ Supportive presence ___ Wedding ___ Other (describe below) Pastoral Comments patient was sitting up in chair; pt did not remember previous visit with him; pt is talkative today and 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, service in the , and various health issues that have brought him several times to the point of ; pt shares his viewpoint about the changes that have come to the medical field; pt is now disabled; pt talks about recent of icwayz-bs-ifp and 's own health issues; pt speaks of his ability to face and win so far; pt says I am not afraid to but should be afraid of me; pt also discloses his near experiences and the spiritual aspects of such encounters; pt does reveal some feelings of unease at the unknown of and tears roll down his checks; discussion continues about how he hopes to be viewed by God; pt welcomes a prayer and expresses gratitude for the visit
--- NOTE | 2018-05-11 16:55 | NURSING ---
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
[2018-05-12 02:00] VITALS: BP 113/75; PULSE 84; RESP 16; TEMP 36.7; O2SAT 98
[2018-05-12 04:12] LABS: Magnesium 1.3 mg/dL (1.6-2.6)
[2018-05-12] MEDS: Ciprofloxacin 0.3% 2.5ml Bottle 2 DRP EACH EYE ×3 (07:00→14:02)
[2018-05-12] MEDS: 0.9% NaCl Peripheral Flush Adult/Peds IV (07:01)
[2018-05-12 08:00] VITALS: BP 106/62; PULSE 74; RESP 18; TEMP 36.3; O2SAT 98
[2018-05-12] MEDS: Thiamine Hydrochloride 100 MG Tablet 200 MG PO (08:08)
[2018-05-12] MEDS: Magnesium Oxide 400 MG Tablet PO (08:08)
[2018-05-12] MEDS: Enoxaparin 40 MG/0.4 ML Syringe SC (09:56)
--- NOTE | 2018-05-12 11:02 | CASEMGMT ---
Addendum entered by Delicia Santos 05/12/18 11:37: Hospital exemption completed in [place]. BEBA Wilkinson, SUELLEN Original Note: ZAC called [facility], let Rosemary know that as soon as precert attained, it is anticipated pt will be able to come to [facility]. SW will continue to follow. BEBA Wilkinson, SUELLEN
[2018-05-12 13:58] VITALS: BP 108/74; PULSE 90; RESP 18; TEMP 36.7; O2SAT 97
--- NOTE | 2018-05-12 16:45 | NURSING ---
report called to Belkis, nurse at [facility].
--- NOTE | 2018-05-12 16:49 | CASEMGMT ---
Received insurance approval for patient to go to [facility]. ZAC called [facility] and [facility] and neither company had any ambulettes available. ZAC spoke with RN and she feels they could help patient into the car here as long as [facility] can help him out of the car on their end. ZAC called patient's and let her know patient was approved to go to [facility] today. ZAC told her there are no ambulettes available tonight. She said she would be able to transport as long as she has help. ZAC called [facility] and spoke with Quita. She said she just got off the phone with patient's and they will help her get him into the building. ZAC will fax orders once completed. Convalescent was completed on . Emily HARMAN MSW
--- NOTE | 2018-05-12 17:03 | PCM.TXEXTCAR ---
- Diet 05/07/18 12:41 Diet: Regular Diet Is pt able to select menu?: Yes - Routine Orders/Code Status Routine Lab Work: - - SERUM MAGNESIUM LEVEL IN 2 DAYS - Wound(s) right thigh Wound Type: Abrasion - Therapies Weight Bearing: Full weight bearing Physical Therapy: Eval and Treat Occupational Therapy: Eval and Treat - Problem/Diagnosis (1) Chronic alcohol abuse Status: Chronic Current Visit: Yes (2) Acute alcoholic hepatitis Status: Acute Current Visit: No (3) Hypomagnesemia Status: Acute Current Visit: No (4) Pancreatitis Status: Acute Current Visit: Yes (5) Alcohol withdrawal Status: Acute Current Visit: Yes - Allergies/Procedures Done in Hospital Allergies/Adverse Reactions: Allergies Seasonal Allergy (Uncoded 05/04/18 06:59) Other Procedures: None - Type of Care/Length of Stay Estimated LOS: Convalescent Care Less Than 30 days Type of Care Needed: Skilled Rehab Potential: Good Prognosis: Good - Additional Orders/Day of Discharge H&P will serve as current which was dated: 05/04/18 Day of Discharge: 05/12/18 - Follow Up Care Primary Care Physician: Care Physician,No Primary [Primary Care Provider] -
[2018-05-12 17:07] VITALS: BP 108/74; PULSE 90; RESP 18; TEMP 36.7; O2SAT 97
--- NOTE | 2018-05-12 17:11 | CASEMGMT ---
Faxed orders to [facility]. Called patient's and let her know she can come in any time. She said she will be here in about 15 minutes. SW notified charge entry specialist as bedside RN was on the phone. Plan: [facility] under skilled level of care on a convalescent stay. Patient's transported him via private vehicle. Emily HARMAN MSW
--- NOTE | 2018-05-14 09:44 | PCM.DC.SUM ---
Discharge Date and Diagnosis Date of Admission: 05/04/18 Date of Discharge: 05/12/18 - Primary Discharge Diagnosis #1 acute alcoholic pancreatitis- #2 acute alcohol withdrawal #3 alcoholic hepatitis- #4 chronic alcoholism #5 generalized debility-secondary to acute pancreatitis and chronic alcoholism #6 hypomagnesemia #7 encephalopathy secondary to chronic alcohol usage and acute alcohol withdrawal - Secondary Discharge Diagnosis Chronic Problems Chronic alcohol abuse (Chronic) Hospital Course and Treatment Operations: None Procedures: None Summary of Care Provided: The patient is a 63 year old M was seen in the emergency room at [facility] with a chief complaint of nausea and vomiting. Patient has a history of chronic alcoholism. Workup in the emergency room included a CBC which showed a thrombocytopenia at 147,000, chemistry revealed a BUN of 34 and a creatinine of 2.6, liver panel showed elevations of several liver enzymes, lipase is elevated at 3925. Patient was given IV fluids, he was given a dose of phenobarbital in the emergency room due to tremor and agitation., Patient was given IV Zofran, he was admitted to PCU for acute pancreatitis, acute kidney injury, and alcohol withdrawal. Patient received oral Librium and IV Ativan for alcohol withdrawal, he was made n.p.o. and given IV fluids, his lipase trended downward. Patient had decided to go to an inpatient alcohol detox facility, he suffered a fall in his room but there were no severe injuries from the fall, patient was transferred to ICU for close observation. Patient appeared to recover from his acute alcohol withdrawal but he remained slightly confused at times. He was seen by PT and OT, it was felt that he would benefit from short-term admission in a half-way facility and his and the patient consented to this. On 05/12/18, patient was seen and examined: On examination he appeared in good health and spirits. There is mild confusion noted. Vital signs as documented. Skin warm and dry and without overt rashes. Neck without JVD. Lungs clear. Heart exam notable for regular rhythm, normal sounds and absence of murmurs, rubs or gallops. Abdomen unremarkable and without evidence of organomegaly, masses, or abdominal aortic enlargement. Extremities nonedematous. Neuro: Cranial nerves II through XII are grossly intact, no focal motor deficits were noted. Psych: Patient was alert, he was oriented as to self and place, there is some mild confusion. Patient followed instructions appropriately, he was not anxious or depressed. On 05/12/18, patient was seen and examined and felt to be in stable condition for transfer to an extended care facility for further care - Physical Exam Vital Signs Temp Pulse Resp BP Pulse Ox 98.1 F 90 18 108/74 97 05/12/18 17:07 05/12/18 17:07 05/12/18 17:07 05/12/18 17:07 05/12/18 17:07 Oxygen Delivery Method Room Air Weight: 83.8 kg Body Mass Index (BMI) 24.3 Intake and Output for Last 24 Hours 05/12/18 05/13/18 05/14/18 23:59 23:59 23:59 Intake Total 90 / 90 Output Total 1050 / 1050 Balance -960 / -960 Home Medications: Medications to take at Discharge Acetaminophen [Tylenol] 500 mg PO Q4H PRN PRN tablet 05/12/18 Ciprofloxacin 0.3% [Ciloxan] 2 drop EACH EYE Q4 bottle 05/12/18 Ensure Enlive 120 ml PO 4X/DAY liquid 05/12/18 Loperamide [Imodium] 2 - 4 mg PO 4X/DAY PRN PRN #1 capsule 05/12/18 Lorazepam [Ativan] 1 mg PO Q6H PRN PRN #20 tab 05/12/18 Magnesium Oxide [Mag-Ox 400] 400 mg PO BIDCM tablet 05/12/18 Melatonin 5 mg PO QHS PRN tablet 05/12/18 Thiamine Hydrochloride [Vitamin B1] 200 mg PO DAILYCM tablet 05/12/18 Following Prescrptions Were Given to Patient: Lorazepam [Ativan] 1 mg PO Q6H PRN PRN #20 tab PRN Reason: AGITATION Loperamide [Imodium] 2 - 4 mg PO 4X/DAY PRN PRN #1 capsule PRN Reason: LOOSE STOOLS Primary Care Physician: Care Physician,No Primary [Primary Care Provider] - Disposition: [facility] facility Minutes spent on discharge:: 32 Patient Condition:: Stable Medical Necessity - Tobacco Use Smoking Status: Never smoker Meaningful Use Info Meaningful Use Diagnoses (Choose all that apply): None applicable Code Visit Inpatient E&M: 20610 Disch Hosp
== END 2018-05-12 17:35 | disposition skilled nursing facility (03) | DRG 438 ==
LOC: ED 06:18 → PCU 06:21 → ICU 05-09 15:14
PROVIDERS: Admitting Provider Family Medicine; Emergency Provider Emergency Medicine; Visit Provider Internal Medicine
DX: K85.20 Alcohol induced acute pancreatitis without necrosis or infection (principal); G93.41 Metabolic encephalopathy; F10.239 Alcohol dependence with withdrawal, unspecified; N17.9 Acute kidney failure, unspecified; K70.10 Alcoholic hepatitis without ascites; E83.42 Hypomagnesemia; S00.81XA Abrasion of other part of head, initial encounter; S80.211A Abrasion, right knee, initial encounter; W19.XXXA Unspecified fall, initial encounter; Y92.230 Patient room in hospital as the place of occurrence of the external cause
CPT/HCPCS: 36415; 70450; 71045; 80053; 80076; 80307; 80320; 81001; 82248; 82607; 82962; 83690; 83735; 85025; 87086; 87088; 97162; 97165; 97530; 97535; 97802; 99285; J7030; A4216; G0480; J2405; J3490

== ENCOUNTER 2019-09-16 21:04 | Inpatient (IN) | payer MEDICARE, SELFPAY ==
[2019-09-16 21:04] VITALS: BP 141/90; PULSE 107; RESP 15; TEMP 36.4; O2SAT 97; BMI 27.8
--- NOTE | 2019-09-16 21:28 | ED.VISSUMM ---
- ER Visit Summary Date of Service: 09/16/19 Chief Complaint: Alcoholic pancreatitis History of Present Illness: The patient is a 64 M who presents with alcoholic pancreatitis that is been getting worse over the past 3 days. Patient states he knows he has a history of alcoholism and has had pancreatitis in the past. Patient states this feels similar. Patient denies abdominal pain however. Patient denies any nausea or vomiting. Patient denies any back pain. Patient denies any melena or hematochezia. Patient states he drinks 2 bottles of wine and one quarter of a large bottle of vodka per day. Patient denies any drug use. Physical Examination: Vital signs are stable except for mild tachycardia of 107. Patient is afebrile. Patient is in no acute distress. Oral mucosa is pink and moist. Neck is supple. Trachea is midline. There is no JVD. Heart was regular rate and rhythm. Lungs are clear and equal bilaterally. Abdomen is soft. Bowel sounds are normal. There is no tenderness. Cranial nerves II through XII are intact. There are no focal motor or sensory deficits noted. Test Results: CBC and comprehensive metabolic profile were obtained were all within normal limits. Lipase was normal at 161. PT with INR and PTT were normal. Urinalysis does not show any evidence of urinary tract infection. Serum alcohol level was elevated at 332. Emergency Department Course and Treatment: Patient was given IV fluids. Patient states he feels like he is going through alcohol withdrawal and is feeling shaky. Patient feels like he needs to be admitted. Patient was advised that the only way to admit him would be for alcohol detox. Patient is agreeable with this. Case was discussed with the hospitalist. He will admit the patient to his service. Disposition: Admit to hospital Impression: 1. Alcohol abuse This note was generated with [employer] dictation software. It may contain incorrect words, spelling, and punctuation that were not noted in review of the chart prior to signing ED Disposition - Plan for ED Patient: Disposition: Acute Care Hospital [facility] Diagnosis: Alcohol abuse Referrals: Care Physician,No Primary [Primary Care Provider] -
[2019-09-16 21:40] LABS: Bacteria 0 SEEN /hpf (None Seen); Mucous, Urine 0 SEEN /hpf (<or=2+); Red Blood Cells-Urine 0 SEEN /hpf (0-5); White Blood Cells 0 SEEN /hpf (0-5)
[2019-09-16 21:45] LABS: Color, Urine Yellow (Yellow); Glucose, Dipstick Normal (Normal); Ketone-Dipstick Negative (Negative); Leukocyte Esterase-Dipstick Negative /ul (Negative); Nitrite-Dipstick Negative (Negative); Occult Blood-Urine Negative /ul (Negative); Protein-Dipstick Negative (Negative); Urine Bilirubin Dipstick Negative (Negative); Urine Clarity Sl. Cloudy (Clear); Urine Urobilinogen Normal (Normal)
[2019-09-16 21:49] LABS: Absolute Lymphocyte Count 2.54 X10^3/uL (0.83-4.51); Basophil# 0.05 X10^3/uL; Basophil% 0.8 % (0-1); Eosinophil# 0.19 X10^3/uL; Hematocrit 42.8 % (40-54); Hemoglobin 14.7 g/dL (13.0-16.5); Lymphocyte # 2.54 X10^3/ul (4.0); Lymphocyte % 40.4 % (19-41); Mean Corp Hgb Conc 34.3 g/dL (32-36); Mean Corpuscular Hgb 32.7 pg (27.0-32.0); Mean Corpuscular Volume 95.1 fL (80-94); Mean Platelet Vol. 10.5 fl (6.2-12.0); Monocyte# 0.48 X10^3/uL; Monocyte% 7.6 % (0-10); NRBC Flagged by Analyzer 0 % (0-5); Neutrophil # 3.01 X10^3/uL (2.7-7.7); Neutrophil % 47.9 % (47-70); Platelet Count 221 K/mm3 (150-450); RBC Distribution Width CV 12.3 % (11.6-14.6); RBC Distribution Width SD 42.3 fl (35.1-43.9); White Blood Count 6.3 K/mm3 (4.4-11.0)
[2019-09-16] MEDS: 0.9% Normal Saline 1,000 ML 1000 ML IV ×2 (21:50→23:20)
[2019-09-16 21:54] LABS: International Normalized Ratio 1.1
[2019-09-16 21:55] LABS: Partial Thromboplast Time 29.3 Seconds (24.1-36.2)
[2019-09-16 21:56] LABS: Prothrombin Time (Protime)PT. 13.7 SECONDS (11.7-14.9)
[2019-09-16 21:57] LABS: Squamous Epithelial Cells - UA 0-5 SEEN /hpf (0-5)
[2019-09-16 21:58] LABS: Amorphous Sediment 1+ PHOS
[2019-09-16 22:00] LABS: AST(SGOT) 44 U/L (15-37); Alanine Aminotransfer ALT/SGPT 42 U/L (16-61); Albumin, Serum 3.9 g/dL (3.2-5.0); Alkaline Phosphatase 74 U/L (45-117); Anion Gap 14 (5-15); BUN 7 mg/dL (7-18); Chloride 105 mmol/L (98-107); Creatinine, Serum 0.77 mg/dL (0.70-1.30); EST Glomerular Filtration Rate 108 mL/min (>60); Est Glom Filt Rate - Afr Amer 130 mL/min (>60); Estimated Creatinine Clearance 107.78 ml/min; Globulin 3.9 g/dL (2.2-4.2); Glucose 116 mg/dL (74-106); Lipase 161 U/L (73-393); Potassium 3.6 mmol/L (3.5-5.1); Protein, Total 7.8 g/dL (6.4-8.2); Sodium Level 143 mmol/L (136-145)
--- NOTE | 2019-09-16 22:32 | PCM.HP.STD ---
Problem List (1) Chronic alcohol abuse Status: Chronic (2) Alcohol abuse Status: Acute (3) Acute alcoholic hepatitis Status: Chronic (4) Pancreatitis Status: Inactive Qualifiers: Chronicity: acute Pancreatitis type: alcohol induced Acute pancreatitis complication: unspecified Qualified Code(s): K85.20 - Alcohol induced acute pancreatitis without necrosis or infection (5) Alcohol withdrawal Status: Acute Qualifiers: Complication of substance-induced condition: with unspecified complication Qualified Code(s): F10.239 - Alcohol dependence with withdrawal, unspecified History of Present Illness Date of Admission: 09/16/19 Chief Complaint: bilateral flank pain 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 Patient thought that his bilateral flank pain was because of pancreatitis so he came to emergency department requesting IV fluids. Patient was at [place] for alcohol rehabilitation. He returned about 1 month ago. However he has relapsed. He drinks wine and vodka. The last time he drank was on the same day of presentation. At the emergency department his alcohol level was at 332. Patient reports anxiety, agitation and anorexia. Initially he just wanted to be hydrated with IV fluids; be given anxiolytics and be discharged home. He reports of a dry mouth and thinks he needs 4 L of IV fluid hydration. However upon further conversation patient change his mind and he wants to undergo alcohol detoxification. Past Medical History Past Medical History (Chronic Problems): Chronic Problems Chronic alcohol abuse (Chronic) Acute alcoholic hepatitis (Chronic) Allergies Seasonal Allergy (Uncoded 09/16/19 21:18) Other Home Medications: Ambulatory Orders Medication Instructions Recorded Thiamine Hydrochloride [Vitamin B1] 200 mg PO DAILYCM tablet 05/12/18 Aspirin [Aspir 81] 81 mg PO DAILY 09/16/19 Atorvastatin Calcium [Lipitor] 10 mg PO QHS 09/16/19 Metformin HCl [Metformin HCl ER] 500 mg PO DAILY 09/16/19 Metoprolol Succinate 50 mg PO DAILY 09/16/19 Omeprazole Magnesium [Prilosec Otc] 20 mg PO DAILY 09/16/19 Surgical History: - - Hemorrhoidectom; C7 foraminotomy Lives: Spouse/ Significant Other Smoking Status: Never smoker Alcohol: Heavy - *Family History Maternal History Items: - - Per patient his mother was healthy and had no medical condition. Paternal History Items: Cancer - Colon, - - Alcoholism Review of Systems Constitutional: Reports: Anorexia. Denies: Chills, Fever, Weight Change HEENT: Denies: Head Aches, Sinus Congestion, Sinus Drainage Cardiovascular: Denies: Chest Pain, Palpitations Respiratory: Denies: Cough, Shortness of breath at rest, Sputum production Gastrointestinal: Denies: Abdominal Pain, Nausea, Vomiting Genitourinary: Denies: Dysuria Musculoskeletal: Reports: Back Pain - Bilateral flank pain. Denies: Joint Pain, Joint Tenderness Skin: Denies: Rash, Wounds Neurological: Denies: Numbness, Tingling, Focal weakness Psychiatric: Reports: Anxiety. Denies: Depression, Homicidal Ideations, Suicidal Ideations Hematologic/ Lymphatic: Denies: Easy Bruising, Easy Bleeding VTE Information - Inpt Only VTE Present on Admission: No VTE Mechan Device Prophylaxis: None VTE Pharm Prophylaxis ordered?: Yes Patient Problems: Active and Suspected Problems Alcohol abuse (Acute) - Physical Exam Vitals/I&O's: Vital Signs Temp Pulse Resp BP Pulse Ox 97.6 F L 107 H 15 141/90 H 97 09/16/19 21:04 09/16/19 21:04 09/16/19 21:04 09/16/19 21:04 09/16/19 21:04 Oxygen Delivery Method Room Air Weight: 92.986 kg Body Mass Index (BMI) 27.8 General: Alert, Oriented x3, Cooperative HEENT: Atraumatic, PERRLA, EOMI, Normocephalic Neck: Supple, No JVD, Negative Carotid Bruits Lungs: Clear to auscultation, Normal air movement, No rhonchi, No wheeze, No rales Cardiovascular: Regular rate, Normal S1, Normal S2, No murmurs Abdomen: Bowel Sounds Present, Soft, Non Tender Extremities: No edema, Capillary Refill Less than 3 Seconds Skin: No rashes, No breakdown Musculoskeletal: No Tenderness to Palpation of Joints or Extremities Neurological: Cranial nerves II-XII grossly intact Psych/Mental Status: Anxious Laboratory Results 09/16/19 21:30: WBC 6.3, RBC 4.50 L, Hgb 14.7, Hct 42.8, MCV 95.1 H, MCH 32.7 H, MCHC 34.3, RDW Std Deviation 42.3, RDW Coeff of Emy 12.3, Plt Count 221, MPV 10.5, Immature Gran % (Auto) 0.300, Neut % (Auto) 47.9, Lymph % (Auto) 40.4, [place] % (Auto) 7.6, Eos % (Auto) 3.0, Baso % (Auto) 0.8, Absolute Neuts (auto) 3.0, Absolute Lymphs (auto) 2.54, Nucleated RBC % 0 09/16/19 21:30: PT 13.7, INR 1.1, APTT 29.3 09/16/19 21:30: Sodium 143, Potassium 3.6, Chloride 105, Carbon Dioxide 24.0, Anion Gap 14, BUN 7, Creatinine 0.77, Estim Creat Clear Calc 107.78, Est GFR (MDRD) Af Amer 130, Est GFR (MDRD) Non-Af 108, BUN/Creatinine Ratio 9.0 L, Glucose 116 H, Calcium 9.0, Total Bilirubin 0.90, AST 44 H, ALT 42, Alkaline Phosphatase 74, Total Protein 7.8, Albumin 3.9, Globulin 3.9, Albumin/Globulin Ratio 1.0, Lipase 161 09/16/19 21:30: Ethyl Alcohol 332.0 H* 09/16/19 21:34: Urine Color Yellow, Urine Clarity Sl. 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 Alcohol dependence and withdrawal Alcohol level on presentation was 332. Noted to have mild elevation in AST. Noted tachycardia Ativan 1 mg IV given at the emergency department. Will put patient on CIWA protocol with Ativan. Home thiamine continue. Folic acid and multivitamin ordered. Trend BMP in a.m. and check magnesium level. Patient received normal saline one liter bolus at the emergency department. On presentation potassium level was 3.6. Will put on normal saline with potassium at 100 mL's per hour for 1 L. Patient has a history of hypomagnesemia. Will check magnesium level in a.m. Metoprolol continued Diabetes mellitus Patient with hyperglycemia on presentation. Hold home metformin for now. Put on Accu-Chek QA CHS with correction scale insulin. HTN Blood pressure is now within goal. Metoprolol continued. Trend blood pressure and adjust blood pressure medications. Hyperlipidemia Lipitor continued History of PE Was anticoagulated for 6 months and now on aspirin. Reportedly hypercoagulation work-up was negative. Aspirin continued. DVT prophylaxis Subcutaneous Lovenox ordered. Inpatient E&M: 37073 Init Hosp L3
[2019-09-16 22:52] VITALS: BP 140/92; PULSE 95; RESP 20; TEMP 36.3; O2SAT 98
[2019-09-16] MEDS: LORazepam 2 MG/ML Syringe 1 MG IV (23:21)
[2019-09-16 23:22] VITALS: BP 140/92; PULSE 87; RESP 16; O2SAT 97
[2019-09-16 23:53] VITALS: BMI 27.0
[2019-09-17] VITALS (13 sets, daily range): BP systolic 118–142; BP diastolic 81–98; PULSE 82–106; RESP 16–24; TEMP 36.4–37.1; O2SAT 93–96; BMI 27.0
[2019-09-17] MEDS: Potassium Chloride 40 MEQ in 0.9% Normal Saline 1,000 ML 100 MEQ IV (00:33)
[2019-09-17] MEDS: LORazepam 2 MG/ML Syringe IV ×5 (00:45→16:53)
[2019-09-17] MEDS: Mag Hydrox/Al Hydrox/Simeth 30 ML UDC PO (03:41)
[2019-09-17] MEDS: Ondansetron 4 MG/2 ML Vial IV (04:56)
[2019-09-17] MEDS: LORazepam 1 MG Tablet 2 MG PO ×2 (04:58→11:42)
[2019-09-17 06:51] LABS: Bedside Glucose 98 mg/dL (70-110)
[2019-09-17 07:44] LABS: Anion Gap 9 (5-15); BUN 5 mg/dL (7-18); BUN/Creat Ratio 8.3 RATIO (10-20); Calcium,Total 8.1 mg/dL (8.5-10.1); Chloride 107 mmol/L (98-107); EST Glomerular Filtration Rate 144 mL/min (>60); Est Glom Filt Rate - Afr Amer 174 mL/min (>60); Estimated Creatinine Clearance 138.31 ml/min; Glucose 96 mg/dL (74-106); Magnesium 1.6 mg/dL (1.6-2.6); Potassium 3.6 mmol/L (3.5-5.1); Sodium Level 141 mmol/L (136-145)
[2019-09-17] MEDS: Thiamine Hydrochloride 100 MG Tablet 200 MG PO (07:44)
[2019-09-17] MEDS: Aspirin E.C. 81 MG Tablet PO (07:44)
[2019-09-17] MEDS: Pantoprazole Sodium 20 MG Tablet PO (07:44)
[2019-09-17] MEDS: Multivitamins,Ther W-Minerals Tablet 1 TABLET PO (07:44)
[2019-09-17] MEDS: Folic Acid 1 MG Tablet PO (07:45)
[2019-09-17] MEDS: Metoprolol(XL)Succ 50 MG Tablet PO (07:45)
--- NOTE | 2019-09-17 08:35 | PN_ITS ---
Patient Problems: Active and Suspected Problems Alcohol abuse (Acute) Subjective: Chief complaint: Follow-up after admission for acute alcoholic intoxication/withdrawal admitted for medical stabilization. Patient seen and examined. No acute events overnight. Still complaining of hand tremors and restlessness. He mentioned that he did have a history of DTs in the past and he is worried about them. His last drink was yesterday morning. Blood alcohol level on admission was 332. He is slightly tachycardic, other vital signs are stable. - Physical Exam Vitals/I&O's: Vital Signs Temp Pulse Resp BP Pulse Ox 97.9 F 98 18 118/82 H 93 09/17/19 07:41 09/17/19 07:45 09/17/19 07:41 09/17/19 07:41 09/17/19 07:41 Oxygen Delivery Method Room Air Weight: 199 lb 4.766 oz Body Mass Index (BMI) 27.0 Intake and Output for Last 24 Hours 09/15/19 09/16/19 09/17/19 23:59 23:59 23:59 Intake Total 1000 / 1500 2480 / 2480 Output Total 875 / 875 Balance 1000 / 1375 1605 / 1605 General: Alert, Oriented x3, Cooperative, - - Minimal restlessness. Hand tremors. HEENT: Atraumatic, PERRLA, EOMI, Normocephalic Oral: Moist Mucosa, No Gingival or Mucosal Lesions/ Ulcerations Neck: Supple, No JVD, Negative Carotid Bruits, Trachea Midline, Thyroid Normal Size and Texture Lungs: Clear to auscultation, Normal air movement, No rhonchi, No wheeze, No rales, Diminished Cardiovascular: Regular rate, Regular Rhythm, Normal S1, Normal S2, PMI Normal, Tachycardic Abdomen: Bowel Sounds Present, Soft, Non Tender, Non-Distended, No Hepato- splenomegaly Extremities: No clubbing, No cyanosis, No edema Skin: No rashes, No breakdown Lymphatic: No Cervical, Supraclavicular, or Inguinal Adenopathy Neurological: Cranial nerves II-XII grossly intact, Motor Exam 5/5 strength throughout Psych/Mental Status: Normal Affect, Appropriate Laboratory Results 09/16/19 21:30: WBC 6.3, RBC 4.50 L, Hgb 14.7, Hct 42.8, MCV 95.1 H, MCH 32.7 H, MCHC 34.3, RDW Std Deviation 42.3, RDW Coeff of Emy 12.3, Plt Count 221, MPV 10.5, Immature Gran % (Auto) 0.300, Neut % (Auto) 47.9, Lymph % (Auto) 40.4, [place] % (Auto) 7.6, Eos % (Auto) 3.0, Baso % (Auto) 0.8, Absolute Neuts (auto) 3.0, Absolute Lymphs (auto) 2.54, Nucleated RBC % 0 09/16/19 21:30: PT 13.7, INR 1.1, APTT 29.3 09/16/19 21:30: Sodium 143, Potassium 3.6, Chloride 105, Carbon Dioxide 24.0, Anion Gap 14, BUN 7, Creatinine 0.77, Estim Creat Clear Calc 107.78, Est GFR (MDRD) Af Amer 130, Est GFR (MDRD) Non-Af 108, BUN/Creatinine Ratio 9.0 L, Glucose 116 H, Calcium 9.0, Total Bilirubin 0.90, AST 44 H, ALT 42, Alkaline Phosphatase 74, Total Protein 7.8, Albumin 3.9, Globulin 3.9, Albumin/Globulin Ratio 1.0, Lipase 161 09/16/19 21:30: Ethyl Alcohol 332.0 H* 09/16/19 21:34: Urine Color Yellow, Urine Clarity Sl. Cloudy, Urine pH 7.0, Ur Specific [place] 1.010, Urine Protein Negative, Urine Glucose (UA) Normal, Urine Ketones Negative, Urine Occult Blood Negative, Urine Nitrite Negative, Urine Bilirubin Negative, Urine Urobilinogen Normal, Ur Leukocyte Esterase Negative, Urine RBC 0 SEEN, Urine WBC 0 SEEN, Ur Squamous Epith Cells 0-5 SEEN, Amorphous Sediment 1+ PHOS, Urine Bacteria 0 SEEN, Urine Mucus 0 SEEN 09/17/19 06:20: Sodium 141, Potassium 3.6, Chloride 107, Carbon Dioxide 25.0, Anion Gap 9, BUN 5 L, Creatinine 0.60 L, Estim Creat Clear Calc 138.31, Est GFR (MDRD) Af Amer 174, Est GFR (MDRD) Non-Af 144, BUN/Creatinine Ratio 8.3 L, Glucose 96, Calcium 8.1 L, Magnesium 1.6 09/17/19 06:45: POC Glucose 98 Current Medications Al Hydroxide/Mg Hydroxide (Mylanta Ii) 30 ml PO Q6H PRN PRN PRN Reason: INDIGESTION Last Admin: 09/17/19 03:41 Dose: 30 ml Documented by: Aspirin (Ecotrin) 81 mg PO DAILYCM [facility] Last Admin: 09/17/19 07:44 Dose: 81 mg Documented by: Atorvastatin Calcium (Lipitor) 10 mg PO QHS [facility] Enoxaparin Sodium (Lovenox) 40 mg SC DAILY [facility] Last Admin: 09/17/19 07:52 Dose: Not Given Documented by: Folic Acid (Folic Acid) 1 mg PO DAILY@0800 [facility] Stop: 09/19/19 08:01 Last Admin: 09/17/19 07:45 Dose: 1 mg Documented by: Glucagon () 1 mg IM .X1 PRN PRN Reason: Hypoglycemia Potassium Chloride 40 meq/ (Sodium Chloride) 1,020 mls @ 100 mls/hr IV .[id number] [facility] Stop: 09/17/19 09:44 Last Admin: 09/17/19 00:33 Dose: 100 mls/hr Documented by: Dextrose (Dextrose 10%-Water) 250 mls @ 999 mls/hr IV .Q16M PRN; Protocol PRN Reason: HYPOGLYCEMIA Insulin Human Lispro (Humalog Kwikpen (Bkc)) 0 unit SC ACHS [facility]; Protocol Last Admin: 09/17/19 06:45 Dose: Not Given Documented by: Lorazepam (Ativan) 2 mg PO Q2H PRN PRN; Protocol PRN Reason: CIWA score > 8 but <15 Lorazepam (Ativan) 2 mg PO UD PRN; Protocol PRN Reason: CIWA score >/=15. Lorazepam (Ativan) 2 mg IV Q2H PRN PRN; Protocol PRN Reason: CIWA score > 8 but <15 Last Admin: 09/17/19 07:46 Dose: 2 mg Documented by: Lorazepam (Ativan) 2 mg IV UD PRN; Protocol PRN Reason: CIWA score >/=15. Last Admin: 09/17/19 00:45 Dose: 2 mg Documented by: Lorazepam (Ativan) 1 mg PO Q24H PRN PRN Reason: Agitation Lorazepam (Ativan) 2 mg PO Q6H [facility]; Taper Stop: 09/23/19 05:29 Last Admin: 09/17/19 04:58 Dose: 2 mg Documented by: Metoprolol Succinate (Toprol Xl (Beta Sofia)) 50 mg PO DAILY [facility] Last Admin: 09/17/19 07:45 Dose: 50 mg Documented by: Multivitamins/Minerals (Multivitamin With Minerals (Bkc)) 1 tablet PO DAILYCM [facility] Last Admin: 09/17/19 07:44 Dose: 1 tablet Documented by: Ondansetron HCl (Zofran) 4 mg IV Q8H PRN PRN PRN Reason: NAUSEA/VOMITING Last Admin: 09/17/19 04:56 Dose: 4 mg Documented by: Pantoprazole Sodium (Protonix) 20 mg PO DAILY [facility] Last Admin: 09/17/19 07:44 Dose: 20 mg Documented by: Sodium Chloride () 10 - 40 ml IV UD PRN PRN Reason: SALINE FLUSH Thi[facility]) [facility] Last Admin: 09/17/19 07:44 Dose: 200 mg Documented by: Medical Necessity - Tobacco Use Smoking Status: Never smoker Assessment/Plan All Active Problems Alcohol abuse (Acute) Alcohol withdrawal (Acute) This is a 64 years old male patient presented to the emergency room because of bilateral flank pain and he thought that it is because of pancreatitis due to heavy drinking, complaint of anxiety, agitation and anorexia and he requested to be admitted for acute alcohol intoxication/withdrawal for medical stabilization. #1 acute alcohol intoxication/withdrawal: He is on tapering Ativan, folic acid, thiamine and multivitamins. He is tachycardic, other vital signs are stable. Blood alcohol level on admission was 332. CBC, BMP, LFT and lipase were unremarkable. Patient did mention that he had a history of DTs in the past and he is worried about them. At this time, apart from mild tachycardia, vital signs are stable. Plan: Start Bentyl as needed, Vistaril, Imodium and trazodone, close monitoring for DTs. #2 type 2 diabetes mellitus: Blood sugar has been stable, metformin held. Continue sliding scale. #3 hypertension: Blood pressure stable, continue metoprolol. #4 hyperlipidemia: Continue statins. #5 history of pulmonary embolism: Completed treatment with anticoagulation, on aspirin. #6 GERD: Continue PPI. #7 DVT prophylaxis: Subcu Lovenox. This note was generated with Dragon dictation software. It may contain incorrect words, spelling, and punctuation that were not noted in checking the note before signing. Inpatient E&M: 71366 Subs Hosp L2
[2019-09-17] MEDS: Gabapentin 300 MG Capsule PO ×2 (11:43→16:55)
[2019-09-17 11:50] LABS: Bedside Glucose 104 mg/dL (70-110)
--- NOTE | 2019-09-17 11:57 | CASEMGMT ---
Social Work Consult: Alcohol Withdrawal Telephone call to [place] at [facility]. Voicemail left informing L[facility] that patient will need to be seen Thursday as [facility] is not in in the weekend. Deborah KEN, KIMANI
[2019-09-17] MEDS: 0.9% Saline Lock 10 ML Syringe IV ×2 (13:20→16:53)
[2019-09-17] MEDS: Albuterol 2.5 MG/3 ML VIAL.NEB. INHALATION ×2 (13:21→19:21)
[2019-09-17] MEDS: Phenobarbital 32.4 MG Tablet 64.8 MG PO ×3 (15:15→21:27)
[2019-09-17] MEDS: Fluticasone 0.05% 1 SPRAY NASAL.SRY 2 SPRAY NASAL (16:53)
[2019-09-17 17:11] LABS: Bedside Glucose 121 mg/dL (70-110)
[2019-09-17] MEDS: Budesonide Respules 0.5 MG/2 ML AMPUL.NEB. INHALATION (19:21)
[2019-09-17] MEDS: Atorvastatin Calcium 10 MG Tablet PO (21:27)
[2019-09-17 21:51] LABS: Bedside Glucose 117 mg/dL (70-110)
[2019-09-18] VITALS (8 sets, daily range): BP systolic 123–160; BP diastolic 75–93; PULSE 72–95; RESP 16–19; TEMP 36.3–36.7; O2SAT 94–98
[2019-09-18] MEDS: Phenobarbital 32.4 MG Tablet 64.8 MG PO ×6 (02:20→21:29)
[2019-09-18 06:41] LABS: Bedside Glucose 127 mg/dL (70-110)
[2019-09-18] MEDS: Budesonide Respules 0.5 MG/2 ML AMPUL.NEB. INHALATION ×2 (06:51→19:44)
[2019-09-18] MEDS: Albuterol 2.5 MG/3 ML VIAL.NEB. INHALATION ×2 (06:51→19:43)
[2019-09-18] MEDS: Fluticasone 0.05% 1 SPRAY NASAL.SRY 2 SPRAY NASAL (07:57)
[2019-09-18] MEDS: Enoxaparin 40 MG/0.4 ML Syringe SC (07:57)
[2019-09-18] MEDS: Aspirin E.C. 81 MG Tablet PO (07:58)
[2019-09-18] MEDS: Gabapentin 300 MG Capsule PO ×3 (07:58→19:02)
[2019-09-18] MEDS: Thiamine Hydrochloride 100 MG Tablet 200 MG PO (07:58)
[2019-09-18] MEDS: Metoprolol(XL)Succ 50 MG Tablet PO (07:58)
[2019-09-18] MEDS: Multivitamins,Ther W-Minerals Tablet 1 TABLET PO (07:58)
[2019-09-18] MEDS: Pantoprazole Sodium 20 MG Tablet PO (07:58)
[2019-09-18] MEDS: Folic Acid 1 MG Tablet PO (08:01)
--- NOTE | 2019-09-18 08:04 | PN_ITS ---
Patient Problems: Active and Suspected Problems Alcohol abuse (Acute) Subjective: Chief complaint: Follow-up after admission for acute alcohol intoxication/withdrawal. Patient seen and examined. No acute events overnight. Nursing staff reported that patient has no more visual hallucinations. Still having some hand shakiness and tremors but improved. His vital signs are stable - Physical Exam Vitals/I&O's: Vital Signs Temp Pulse Resp BP Pulse Ox 97.4 F L 95 16 143/81 H 94 09/18/19 02:00 09/18/19 07:58 09/18/19 06:51 09/18/19 07:58 09/18/19 02:00 Oxygen Delivery Method Room Air Weight: 199 lb 4.766 oz Body Mass Index (BMI) 27.0 Intake and Output for Last 24 Hours 09/16/19 09/17/19 09/18/19 23:59 23:59 23:59 Intake Total 1000 / 1500 4220 / 4340 320 / 320 Output Total 1550 / 1550 250 / 250 Balance 1000 / 1375 2670 / 2790 70 / 70 General: Alert, Oriented x3, Cooperative, No apparent distress HEENT: Atraumatic, PERRLA, EOMI, Normocephalic Oral: Moist Mucosa, No Gingival or Mucosal Lesions/ Ulcerations Neck: Supple, No JVD, Negative Carotid Bruits, Trachea Midline, Thyroid Normal Size and Texture Lungs: Clear to auscultation, Normal air movement, No rhonchi, No wheeze, No rales, Diminished Cardiovascular: Regular rate, Regular Rhythm, Normal S1, Normal S2, PMI Normal Abdomen: Bowel Sounds Present, Soft, Non Tender, Non-Distended, No Hepato- splenomegaly Extremities: No clubbing, No cyanosis, No edema Skin: No rashes, No breakdown Neurological: Cranial nerves II-XII grossly intact, Neuro grossly intact Psych/Mental Status: Normal Affect, Appropriate, Alert and oriented to time, place, person, mood and affect Laboratory Results 09/17/19 11:41: POC Glucose 104 09/17/19 16:51: POC Glucose 121 H 09/17/19 21:30: POC Glucose 117 H 09/18/19 06:01: POC Glucose 127 H Current Medications Al Hydroxide/Mg Hydroxide (Mylanta Ii) 30 ml PO Q6H PRN PRN PRN Reason: INDIGESTION Last Admin: 09/17/19 03:41 Dose: 30 ml Documented by: Albuterol Sulfate (Ventolin Aerosols) 2.5 mg INHALATION Q6HWA.RT [facility] Last Admin: 09/18/19 06:51 Dose: 2.5 mg Documented by: Aspirin (Ecotrin) 81 mg PO DAILYCM [facility] Last Admin: 09/18/19 07:58 Dose: 81 mg Documented by: Atorvastatin Calcium (Lipitor) 10 mg PO QHS [facility] Last Admin: 09/17/19 21:27 Dose: 10 mg Documented by: Budesonide (Pulmicort Aerosol) 0.5 mg INHALATION Q12H.RT [facility] Last Admin: 09/18/19 06:51 Dose: 0.5 mg Documented by: Dicyclomine HCl (Bentyl) 20 mg PO Q6H PRN PRN PRN Reason: abdominal discomfort Enoxaparin Sodium (Lovenox) 40 mg SC DAILY [facility] Last Admin: 09/18/19 07:57 Dose: 40 mg Documented by: Fluticasone Propionate (Flonase Nasal [place]) 2 spray NASAL DAILY [facility] Last Admin: 09/18/19 07:57 Dose: 2 spray Documented by: Folic Acid (Folic Acid) 1 mg PO DAILY@0800 [facility] Stop: 09/19/19 08:01 Last Admin: 09/18/19 08:01 Dose: 1 mg Documented by: Gabapentin (Neurontin) 300 mg PO TIDCM [facility] Last Admin: 09/18/19 07:58 Dose: 300 mg Documented by: Glucagon () 1 mg IM .X1 PRN PRN Reason: Hypoglycemia Hydroxyzine Pamoate (Vistaril Pamoate Capsule) 50 mg PO Q4H PRN PRN PRN Reason: mild anxiety Insulin Human Lispro (Humalog Kwikpen (Bkc)) 0 unit SC ACHS [facility]; Protocol Last Admin: 09/18/19 06:55 Dose: Not Given Documented by: Loperamide HCl (Imodium) 2 mg PO Q4H PRN PRN PRN Reason: LOOSE STOOLS Lorazepam (Ativan) 2 mg PO Q2H PRN PRN; Protocol PRN Reason: CIWA score > 8 but <15 Lorazepam (Ativan) 2 mg PO UD PRN; Protocol PRN Reason: CIWA score >/=15. Lorazepam (Ativan) 2 mg IV Q2H PRN PRN; Protocol PRN Reason: CIWA score > 8 but <15 Last Admin: 09/17/19 16:53 Dose: 2 mg Documented by: Lorazepam (Ativan) 2 mg IV UD PRN; Protocol PRN Reason: CIWA score >/=15. Last Admin: 09/17/19 00:45 Dose: 2 mg Documented by: Lorazepam (Ativan) 1 mg PO Q24H PRN PRN Reason: Agitation Metoprolol Succinate (Toprol Xl (Beta Sofia)) 50 mg PO DAILY [facility] Last Admin: 09/18/19 07:58 Dose: 50 mg Documented by: Multivitamins/Minerals ([facility]itamin With [facility]erals ([facility])) [facility] Last Admin: 09/18/19 07:58 Dose: 1 tablet Documented by: Ondansetron HCl (Zofran) 4 mg IV Q8H PRN PRN PRN Reason: NAUSEA/VOMITING Last Admin: 09/17/19 04:56 Dose: 4 mg Documented by: Pantoprazole Sodium (Protonix) 20 mg PO DAILY [facility] Last Admin: 09/18/19 07:58 Dose: 20 mg Documented by: Phenobarbital (Phenobarbital) 97.2 mg PO Q4H [facility]; Taper Stop: 09/21/19 18:59 Last Admin: 09/18/19 06:03 Dose: 97.2 mg Documented by: Sodium Chloride () 10 - 40 ml IV UD PRN PRN Reason: SALINE FLUSH Last Admin: 09/17/19 16:53 Dose: 10 ml Documented by: Thiamine [facility] ([facility]itamin [facility]1) [facility] Last Admin: 09/18/19 07:58 Dose: 200 mg Documented by: Trazodone HCl (Desyrel) 100 mg PO QHS PRN PRN Reason: INSOMNIA Medical Necessity - Tobacco Use Smoking Status: Never smoker Assessment/Plan All Active Problems Alcohol abuse (Acute) Alcohol withdrawal (Acute) This is a 64 years old male patient presented to the emergency room because of bilateral flank pain and he thought that it is because of pancreatitis due to heavy drinking, complaint of anxiety, agitation and anorexia and he requested to be admitted for acute alcohol intoxication/withdrawal for medical stabilization. #1 acute alcohol intoxication/withdrawal: He is on tapering phenobarbital and PRN Ativan as well as folic acid, thiamine and multivitamins. Symptoms started to improve, no more tachycardia, no more hallucination. Vital signs are stable. Blood alcohol level on admission was 332. CBC, BMP, LFT and lipase were unremarkable. Plan to continue same treatment. #2 type 2 diabetes mellitus: Blood sugar has been stable, metformin held. Continue sliding scale. #3 hypertension: Blood pressure stable, continue metoprolol. #4 hyperlipidemia: Continue statins. #5 history of pulmonary embolism: Completed treatment with anticoagulation, on aspirin. #6 GERD: Continue PPI. #7 DVT prophylaxis: Subcu Lovenox. This note was generated with [employer] dictation software. It may contain incorrect words, spelling, and punctuation that were not noted in checking the note before signing. Inpatient E&M: 08012 Subs Hosp L2
[2019-09-18 14:06] LABS: Bedside Glucose 104 mg/dL (70-110)
[2019-09-18 18:15] LABS: Bedside Glucose 130 mg/dL (70-110)
[2019-09-18] MEDS: Atorvastatin Calcium 10 MG Tablet PO (21:29)
[2019-09-18 22:31] LABS: Bedside Glucose 132 mg/dL (70-110)
[2019-09-19] VITALS (9 sets, daily range): BP systolic 135–150; BP diastolic 77–105; PULSE 78–104; RESP 16–20; TEMP 36.4–36.8; O2SAT 97–98
[2019-09-19] MEDS: Phenobarbital 32.4 MG Tablet 64.8 MG PO ×6 (02:36→21:35)
[2019-09-19 06:16] LABS: Bedside Glucose 119 mg/dL (70-110)
[2019-09-19] MEDS: Albuterol 2.5 MG/3 ML VIAL.NEB. INHALATION ×2 (07:13→13:06)
[2019-09-19] MEDS: Budesonide Respules 0.5 MG/2 ML AMPUL.NEB. INHALATION (07:13)
[2019-09-19] MEDS: Gabapentin 300 MG Capsule PO ×3 (07:53→16:10)
[2019-09-19] MEDS: Folic Acid 1 MG Tablet PO (07:53)
[2019-09-19] MEDS: Aspirin E.C. 81 MG Tablet PO (07:53)
[2019-09-19] MEDS: Multivitamins,Ther W-Minerals Tablet 1 TABLET PO (07:53)
[2019-09-19] MEDS: Thiamine Hydrochloride 100 MG Tablet 200 MG PO (07:54)
[2019-09-19] MEDS: Fluticasone 0.05% 1 SPRAY NASAL.SRY 2 SPRAY NASAL (07:54)
[2019-09-19] MEDS: Pantoprazole Sodium 20 MG Tablet PO (07:55)
[2019-09-19] MEDS: Metoprolol(XL)Succ 50 MG Tablet PO (07:55)
--- NOTE | 2019-09-19 08:40 | PN_ITS ---
Patient Problems: Active and Suspected Problems Alcohol abuse (Acute) Subjective: Chief complaint: Follow-up after admission for acute alcohol intoxication/withdrawal. Patient seen and examined. No acute events overnight. Tremors of both hands and restlessness continue to improve. Patient was able to sleep last night very well. Vital signs are stable. - Physical Exam Vitals/I&O's: Vital Signs Temp Pulse Resp BP Pulse Ox 98.0 F 78 18 140/92 H 98 09/19/19 07:58 09/19/19 07:58 09/19/19 07:58 09/19/19 07:58 09/19/19 07:58 Oxygen Delivery Method Room Air Weight: 199 lb 4.766 oz Body Mass Index (BMI) 27.0 Intake and Output for Last 24 Hours 09/17/19 09/18/19 09/19/19 23:59 23:59 23:59 Intake Total 4220 / 4340 1000 / 1450 750 / 750 Output Total 1550 / 1550 1075 / 1725 1150 / 1150 Balance 2670 / 2790 -75 / -275 -400 / -400 General: Alert, Oriented x3, Cooperative, No apparent distress HEENT: Atraumatic, PERRLA, EOMI, Normocephalic Oral: Moist Mucosa, No Gingival or Mucosal Lesions/ Ulcerations Neck: Supple, No JVD, Negative Carotid Bruits, Trachea Midline, Thyroid Normal Size and Texture Lungs: Clear to auscultation, Normal air movement, No rhonchi, No wheeze, No rales, Diminished Cardiovascular: Regular rate, Regular Rhythm, Normal S1, Normal S2, PMI Normal Abdomen: Bowel Sounds Present, Soft, Non Tender, Non-Distended, No Hepato- splenomegaly Extremities: No clubbing, No cyanosis, No edema Skin: No rashes, No breakdown Lymphatic: No Cervical, Supraclavicular, or Inguinal Adenopathy Neurological: Cranial nerves II-XII grossly intact, Neuro grossly intact Psych/Mental Status: Normal Affect, Appropriate Laboratory Results 09/18/19 13:51: POC Glucose 104 09/18/19 18:09: POC Glucose 130 H 09/18/19 21:23: POC Glucose 132 H 09/19/19 06:09: POC Glucose 119 H Current Medications Al Hydroxide/Mg Hydroxide (Mylanta Ii) 30 ml PO Q6H PRN PRN PRN Reason: INDIGESTION Last Admin: 09/17/19 03:41 Dose: 30 ml Documented by: Albuterol Sulfate (Ventolin Aerosols) 2.[address] [facility] Last Admin: 09/19/19 07:13 Dose: 2.5 mg Documented by: Aspirin (Ecotrin) [address] [facility] Last Admin: 09/19/19 07:53 Dose: 81 mg Documented by: Atorvastatin Calcium (Lipitor) [address] [facility] Last Admin: 09/18/19 21:29 Dose: 10 mg Documented by: Budesonide (Pulmicort Aerosol) 0.[address] [facility] Last Admin: 09/19/19 07:13 Dose: 0.5 mg Documented by: Dicyclomine HCl (Bentyl) 20 mg PO Q6H PRN PRN PRN Reason: abdominal discomfort Enoxaparin Sodium (Lovenox) [address] [facility] Last Admin: 09/19/19 07:55 Dose: Not Given Documented by: Fluticasone Propionate (Flonase Nasal [place]) [address] [facility] Last Admin: 09/19/19 07:54 Dose: 2 spray Documented by: Gabapentin (Neurontin) [address] [facility] Last Admin: 09/19/19 07:53 Dose: 300 mg Documented by: Glucagon () 1 mg IM .X1 PRN PRN Reason: Hypoglycemia Hydroxyzine Pamoate (Vistaril Pamoate Capsule) 50 mg PO Q4H PRN PRN PRN Reason: mild anxiety Insulin Human Lispro (Humalog Kwikpen (Bkc)) [address] [facility]; Protocol Last Admin: 09/19/19 06:21 Dose: Not Given Documented by: Loperamide HCl (Imodium) 2 mg PO Q4H PRN PRN PRN Reason: LOOSE STOOLS Lorazepam (Ativan) 2 mg PO Q2H PRN PRN; Protocol PRN Reason: CIWA score > 8 but <15 Lorazepam (Ativan) 2 mg PO UD PRN; Protocol PRN Reason: CIWA score >/=15. Lorazepam (Ativan) 2 mg IV Q2H PRN PRN; Protocol PRN Reason: CIWA score > 8 but <15 Last Admin: 09/17/19 16:53 Dose: 2 mg Documented by: Lorazepam (Ativan) 2 mg IV UD PRN; Protocol PRN Reason: CIWA score >/=15. Last Admin: 09/17/19 00:45 Dose: 2 mg Documented by: Lorazepam (Ativan) 1 mg PO Q24H PRN PRN Reason: Agitation Metoprolol Succinate (Toprol Xl (Beta Sofia)) [address] [facility] Last Admin: 09/19/19 07:55 Dose: 50 mg Documented by: Multivitamins/Minerals (Multivitamin With Minerals ([facility])) [facility] Last Admin: 09/19/19 07:53 Dose: 1 tablet Documented by: Ondansetron HCl (Zofran) 4 mg IV Q8H PRN PRN PRN Reason: NAUSEA/VOMITING Last Admin: 09/17/19 04:56 Dose: 4 mg Documented by: Pantoprazole Sodium (Protonix) [address] [facility] Last Admin: 09/19/19 07:55 Dose: 20 mg Documented by: Phenobarbital (Phenobarbital) 64.[address] [facility]; Taper Stop: 09/21/19 18:59 Last Admin: 09/19/19 06:05 Dose: 64.8 mg Documented by: Sodium Chloride () 10 - 40 ml IV UD PRN PRN Reason: SALINE FLUSH Last Admin: 09/17/19 16:53 Dose: 10 ml Documented by: Thiamine HCl ([facility]itamin B1) [facility] Last Admin: 09/19/19 07:54 Dose: 200 mg Documented by: Trazodone HCl (Desyrel) 100 mg PO QHS PRN PRN Reason: INSOMNIA Medical Necessity - Tobacco Use Smoking Status: Never smoker Assessment/Plan All Active Problems Alcohol abuse (Acute) Alcohol withdrawal (Acute) This is a 64 years old male patient presented to the emergency room because of bilateral flank pain and he thought that it is because of pancreatitis due to heavy drinking, complaint of anxiety, agitation and anorexia and he requested to be admitted for acute alcohol intoxication/withdrawal for medical stabilization. #1 acute alcohol intoxication/withdrawal: Remained on tapering phenobarbital and PRN Ativan as well as folic acid, thiamine and multivitamins. Symptoms continued to improve, no more tachycardia, no more hallucination. Vital signs are stable. Blood alcohol level on admission was 332. CBC, BMP, LFT and lipase were unremarkable. Plan to continue same treatment, anticipate discharge home tomorrow. #2 type 2 diabetes mellitus: Blood sugar has been in the range of 100-150, stable. Metformin held. Continue sliding scale. #3 hypertension: Blood pressure stable, continue metoprolol. #4 hyperlipidemia: Continue statins. #5 history of pulmonary embolism: Completed treatment with anticoagulation, on aspirin. #6 GERD: Continue PPI. #7 DVT prophylaxis: Subcu Lovenox. This note was generated with [email or web address] dictation software. It may contain incorrect words, spelling, and punctuation that were not noted in checking the note before signing. Inpatient E&M: 21181 Subs Hosp L2
--- NOTE | 2019-09-19 09:49 | CASEMGMT ---
Social Work Note SW placed a call to Lima at [facility]. Lima states she is in the office today will be at [facility] around 1:00pm to speak with pt. Marcela Blackburn MSW, [employer]
[2019-09-19 11:26] LABS: Bedside Glucose 223 mg/dL (70-110)
--- NOTE | 2019-09-19 12:41 | NURSING ---
Gave pt morning medication and watched him put the medications from the cup in his mouth and drink some water. Dietary called and stated that there were pills in a cup on his tray. Charge nurse obtained pills and brought them back to the floor. I appears to have one gabapentin, protonix, aspirin and a white pill that appears to be B1. They are covered in a brown dried substance. Unsure when these medications are from discarded medications with Nirmala SANDOVAL.
--- NOTE | 2019-09-19 13:51 | ADDICTION ---
This engineering writer met with patient in his room. He was lethargic but oriented x4. He appeared to be having difficulty waking. Patient stated that he does not want ongoing AoD treatment in [place] as he is from [place], [place]. He did not want to engage in assessment as he plans to engage in treatment at home. He reports that he has Medicare insurance. This engineering writer attempted to identify resources for patient in his community. This engineering writer called multiple agencies who all stated that they do not accept Medicare for their services. This engineering writer identified [facility] as a potential resource for patient and provided patient with contact information. He reported that he will reach out to this agency following discharge from [facility]. This engineering writer will inform hospital social insurance adviser of patient's plan to follow up with agency in his home-area for alcohol treatment following d/c from hospital.
[2019-09-19 17:51] LABS: Bedside Glucose 133 mg/dL (70-110)
[2019-09-19] MEDS: Insulin Lispro 100 UNIT/ML INSULN.PEN SC (21:34)
[2019-09-19] MEDS: Atorvastatin Calcium 10 MG Tablet PO (21:34)
[2019-09-19 21:56] LABS: Bedside Glucose 190 mg/dL (70-110)
[2019-09-20] MEDS: Phenobarbital 32.4 MG Tablet 64.8 MG PO ×2 (03:27→08:45)
[2019-09-20 03:28] VITALS: BP 135/88; PULSE 87; RESP 18; TEMP 36.5; O2SAT 97
[2019-09-20 06:38] VITALS: PULSE 85; RESP 20
[2019-09-20] MEDS: Albuterol 2.5 MG/3 ML VIAL.NEB. INHALATION (06:38)
[2019-09-20] MEDS: Budesonide Respules 0.5 MG/2 ML AMPUL.NEB. INHALATION (06:38)
[2019-09-20 07:41] LABS: Bedside Glucose 118 mg/dL (70-110)
--- NOTE | 2019-09-20 08:16 | PCM.DC ---
- Discharge Diagnoses Current Active Problems: Current Active and Chronic Problems Alcohol abuse (Acute) You will use the following diet at home:: Calorie/Carbohydrate Controlled (specify 1200, 1400, etc) - 2000 BRITTNEY. Your food should be the consistency of: Regular Discharge Activity: Return to Normal Activity Weight Bearing Status: Weight bearing as tolerated Call your doctor if you observe: Fever of 101 or Higher, Shortness of breath, Dizziness, Fainting spells, Chest pain, Prolonged hiccoughing, Uncontrolled pain Instructions: Alcoholism: Resources for Family and Friends, Recovering from Addiction, Recovering from Addiction: Continuing with Counseling Allergies/Adverse Reactions: Allergies Seasonal Allergy (Uncoded 09/16/19 21:18) Other Medications to take at Discharge Thiamine Hydrochloride [Vitamin B1] 200 mg PO DAILYCM tablet 05/12/18 Aspirin [Aspir 81] 81 mg PO DAILY 09/16/19 Atorvastatin Calcium [Lipitor] 10 mg PO QHS 09/16/19 Metformin HCl [Metformin HCl ER] 500 mg PO DAILY 09/16/19 Metoprolol Succinate 50 mg PO DAILY 09/16/19 Omeprazole Magnesium [Prilosec Otc] 20 mg PO DAILY 09/16/19 Fluticasone 0.05% [Flonase Nasal [place]] 2 spray NASAL DAILY 09/17/19 Fluticasone/Salmeterol [Advair 250-50 Diskus] 1 puff INHALATION DAILY 09/17/19 Folic Acid 1 mg PO DAILY 09/17/19 Gabapentin [Neurontin] 300 mg PO TIDCM 09/17/19 Primary Care Physician: Care Physician,No Primary [Primary Care Provider] - Please follow up with your Primary Care Physician in: 1-2 WEEKS. Test Results: Test results from this visit will be discussed in further detail at your follow-up appointment, if applicable.
[2019-09-20 08:37] VITALS: BP 132/86; PULSE 100; RESP 18; TEMP 36.7; O2SAT 98
[2019-09-20] MEDS: Aspirin E.C. 81 MG Tablet PO (08:40)
[2019-09-20] MEDS: Multivitamins,Ther W-Minerals Tablet 1 TABLET PO (08:41)
[2019-09-20] MEDS: Gabapentin 300 MG Capsule PO (08:41)
[2019-09-20] MEDS: Thiamine Hydrochloride 100 MG Tablet 200 MG PO (08:41)
[2019-09-20] MEDS: Fluticasone 0.05% 1 SPRAY NASAL.SRY 2 SPRAY NASAL (08:41)
[2019-09-20 08:42] VITALS: BP 132/86; PULSE 100
[2019-09-20] MEDS: Pantoprazole Sodium 20 MG Tablet PO (08:42)
[2019-09-20] MEDS: Metoprolol(XL)Succ 50 MG Tablet PO (08:42)
[2019-09-20 09:15] VITALS: BP 132/86; PULSE 100; RESP 18; TEMP 36.7; O2SAT 98
--- NOTE | 2019-09-20 12:20 | DS.PCM_ITS ---
Discharge Date and Diagnosis Date of Admission: 09/16/19 Date of Discharge: 09/20/19 - Primary Discharge Diagnosis Acute alcohol withdrawal, admitted for medical stabilization. - Secondary Discharge Diagnosis Chronic Problems History of pulmonary embolism (Chronic) Hyperlipidemia (Chronic) Type 2 diabetes mellitus (Chronic) Chronic alcohol abuse (Chronic) Hospital Course and Treatment Operations: None Procedures: None Summary of Care Provided: Patient seen and examined on the day of discharge and appeared to be stable to be discharged home. He has been doing fine, symptoms for craving significantly improved. He has no more hand tremors and he was able to sleep last night as well night before. His vital signs are stable. The patient is a 64 year old M presented to the emergency room because of bilateral flank pain and he thought that he may have pancreatitis due to drinking alcohol, also complained of having tremors, anxiety, agitation and requested admission for medical stabilization due to acute alcohol intoxication/withdrawal. Upon admission, his blood alcohol level was 332. CBC and BMP was unremarkable. LFT and lipase were normal. Acute pancreatitis ruled out. He had a history of DTs in the past and patient was worried about going back into DTs. Initially, patient was started on Ativan taper. After admission, patient was started on tapering phenobarbital as well as PRN Ativan along with folic acid, thiamine and multivitamins. Also, he was given Zofran, Bentyl, methocarbamol and Vistaril as needed. Initially, his blood pressure was elevated as well as he was having some tachycardia which is attributed to acute withdrawal. With tapering phenobarbital and PRN Ativan, patient symptoms improved and he did very well. Hand tremors, agitation and anxiety significantly improved. His vital signs stabilized and he had no more tachycardia. Patient discharged home in a stable condition, discharged on his previous home medications without any changes, recommended to use folic acid and thiamine and patient stated that he does have those medications at home, recommended follow-up with PCP in 1 to 2 weeks. - Physical Exam Vitals/I&O's: Vital Signs Temp Pulse Resp BP Pulse Ox 98.1 F 100 18 132/86 H 98 09/20/19 09:15 09/20/19 09:15 09/20/19 09:15 09/20/19 09:15 09/20/19 09:15 Oxygen Delivery Method Room Air Weight: 199 lb 4.766 oz Body Mass Index (BMI) 27.0 Intake and Output for Last 24 Hours 09/18/19 09/19/19 09/20/19 23:59 23:59 23:59 Intake Total 1000 / 1450 1999 900 / 900 Output Total 1075 / 1725 2250 / 3100 1999 Balance -75 / -275 -250 / -500 -1100 / -1100 General: Alert, Oriented x3, Cooperative, No apparent distress HEENT: Atraumatic, PERRLA, EOMI, Normocephalic Oral: Moist Mucosa, No Gingival or Mucosal Lesions/ Ulcerations Neck: Supple, No JVD, Negative Carotid Bruits, Trachea Midline, Thyroid Normal Size and Texture Lungs: Clear to auscultation, Normal air movement, No rhonchi, No wheeze, No rales Cardiovascular: Regular rate, Regular Rhythm, Normal S1, Normal S2, PMI Normal Abdomen: Bowel Sounds Present, Soft, Non Tender, Non-Distended, No Hepato- splenomegaly Extremities: No clubbing, No cyanosis, No edema Skin: No rashes, No breakdown Lymphatic: No Cervical, Supraclavicular, or Inguinal Adenopathy Neurological: Cranial nerves II-XII grossly intact, Motor Exam 5/5 strength throughout Psych/Mental Status: Normal Affect, Appropriate Laboratory Results 09/19/19 16:07: POC Glucose 133 H 09/19/19 21:29: POC Glucose 190 H 09/20/19 07:00: POC Glucose 118 H Discharge Activity: Return to Normal Activity Weight Bearing Status: Weight bearing as tolerated Call your doctor if you observe: Fever of 101 or Higher, Shortness of breath, Dizziness, Fainting spells, Chest pain, Prolonged hiccoughing, Uncontrolled pain Home Medications: Medications to take at Discharge Thiamine Hydrochloride [Vitamin B1] 200 mg PO DAILYCM tablet 05/12/18 Aspirin [Aspir 81] 81 mg PO DAILY 09/16/19 Atorvastatin Calcium [Lipitor] 10 mg PO QHS 09/16/19 Metformin HCl [Metformin HCl ER] 500 mg PO DAILY 09/16/19 Metoprolol Succinate 50 mg PO DAILY 09/16/19 Omeprazole Magnesium [Prilosec Otc] 20 mg PO DAILY 09/16/19 Fluticasone 0.05% [Flonase Nasal [place]] 2 spray NASAL DAILY 09/17/19 Fluticasone/Salmeterol [Advair 250-50 Diskus] 1 puff INHALATION DAILY 09/17/19 Folic Acid 1 mg PO DAILY 09/17/19 Gabapentin [Neurontin] 300 mg PO TIDCM 09/17/19 Primary Care Physician: Care Physician,No Primary [Primary Care Provider] - Please follow up with your Primary Care Physician in: 1-2 WEEKS. Patient Instructions: Alcoholism: Resources for Family and Friends, Recovering from Addiction, Recovering from Addiction: Continuing with Counseling Disposition: Home Minutes spent on discharge:: 27 Patient Condition:: Stable Medical Necessity - Tobacco Use Smoking Status: Never smoker Meaningful Use Info Meaningful Use Diagnoses (Choose all that apply): None applicable Inpatient E&M: 23503 [facility]
== END 2019-09-20 09:15 | disposition home or self-care (01) | DRG 897 ==
LOC: ED 22:36 → MS3 22:44
PROVIDERS: Admitting Provider Hospitalist; Emergency Provider Emergency Medicine; Visit Provider Hospitalist
DX: F10.239 Alcohol dependence with withdrawal, unspecified (principal); F10.229 Alcohol dependence with intoxication, unspecified; Y90.8 Blood alcohol level of 240 mg/100 ml or more; E78.5 Hyperlipidemia, unspecified; I10 Essential (primary) hypertension; E11.65 Type 2 diabetes mellitus with hyperglycemia; Z86.711 Personal history of pulmonary embolism; Z79.82 Long term (current) use of aspirin; Z79.84 Long term (current) use of oral hypoglycemic drugs
CPT/HCPCS: 36415; 80048; 80053; 80320; 81001; 82962; 83690; 83735; 85025; 85610; 85730; 94640; 99251; 99285; J7030; A4216; G0463; G0480; J2405